=== PATIENT | female | born 1940 | race Caucasian/White ===

== ENCOUNTER 2016-08-23 15:39 | Observation (INO) | payer MEDICARE ==
[2016-08-23 16:18] LABS: Basophils % (A) 0 %; CH 28.6; CHCM 32.7; Eosinophils # (A) 0.1 k/uL (0-0.7); Eosinophils % (A) 2 %; HCT 38.2 % (34.0-46.0); HDW 2.76; HGB 12.2 gm/dL (11.4-16.0); Luc # (Auto) 0.08; Luc % (Auto) 1; Lymphocytes # (A) 1.1 k/uL (1.0-4.8); Lymphocytes % (A) 20 %; MCHC 31.9 g/dL (31.0-37.0); MCV 87.9 fL (80.0-100.0); Monocytes # (A) 0.5 k/uL (0-1.0); Monocytes % (A) 9 %; Neutrophils # (A) 3.8 k/uL (1.3-7.7); Neutrophils % (A) 68 %; RBC 4.35 m/uL (3.80-5.40); RDW 13.5 % (11.5-15.5); WBC 5.6 k/uL (3.8-10.6); WBC (Perox) 5.82
--- NOTE | 2016-08-23 16:28 | ED ---
Chest Pain HPI - General Chief Complaint: Chest Pain Stated Complaint: Chest Pain Time Seen by Provider: 08/23/16 15:54 Source: patient, RN notes reviewed Mode of arrival: wheelchair Limitations: no limitations - History of Present Illness Initial Comments: 75-year-old female presents emergency Department chief complaint chest heaviness , shortness of breath. Patient states that she's had on and off symptoms for the last month but states it's worse today. She states that time she has symptoms worse when she is moving around though she does have symptoms at rest. Patient states that her chest hurts so bad at times that she feels that she cannot breathe. Patient states that she has no history of blood clots. Patient denies any lung conditions. Patient states she has a history of hyperlipidemia but denies hypertension or diabetes. Patient is a nonsmoker no history of smoking. Patient states she is scheduled for a stress test though she states she had canceled that she was sick. Patient denies any coronary stents. Patient denies any nausea, vomiting, diaphoretic episodes. - Related Data Home Medications Medication Instructions Recorded Confirmed Pantoprazole Sodium [Protonix] 40 mg PO DAILY 12/26/13 08/23/16 Aspirin 162 mg PO DAILY 05/04/15 08/23/16 Calcium Carbonate/Vitamin D3 1 tab PO DAILY 05/04/15 08/23/16 [Calcium 600 + Vit D Tablet] Carbidopa/Levodopa [Sinemet 25-100 3 tab PO TID 05/04/15 08/23/16 mg] Carboxymethylcellulose Sodium 1 drop BOTH EYES DAILY 05/04/15 08/23/16 [Refresh Tears] Levothyroxine Sodium [Synthroid] 88 mcg PO DAILY 05/04/15 08/23/16 Sertraline HCl [Sertraline HCl] 50 mg PO DAILY 05/04/15 08/23/16 Vit C/E/Zn/Coppr/Lutein/Zeaxan 1 tab PO DAILY 05/04/15 08/23/16 [Preservision Areds 2 Softgel] Gabapentin [Neurontin] 300 mg PO TID 08/23/16 08/23/16 Pravastatin Sodium [Pravachol] 20 mg PO DAILY 08/23/16 08/23/16 Allergies Allergy/AdvReac Type Severity Reaction Status Date / Time atorvastatin calcium Allergy Mild Nausea Verified 08/23/16 16:54 [From Lipitor] Nitrofuran Analogues Allergy Mild Rash/Hives Verified 08/23/16 16:54 Penicillins Allergy Mild Rash/Hives Verified 08/23/16 16:54 Sulfa (Sulfonamide Allergy Mild Nausea & Verified 08/23/16 16:54 Antibiotics) Vomiting clindamycin Allergy Rash/Hives Verified 08/23/16 16:54 Iodinated Contrast Media - Allergy Dyspnea Verified 08/23/16 16:54 Oral and [Iodinated Contrast Media - IV Dye] Iodine and Iodide Containing Allergy Anaphylaxis Verified 08/23/16 16:54 Produc Review of Systems ROS Statement: Those systems with pertinent positive or pertinent negative responses have been documented in the HPI. ROS Other: All systems not noted in ROS Statement are negative. EKG Findings - EKG Comments: EKG Findings:: EKG performed at 15:57 no sinus rhythm with a rate of 65. MN interval 186 QRS duration 90 QT/QTc 412/420 Past Medical History Past Medical History: Deep Vein Thrombosis (DVT), GERD/Reflux, Pulmonary Embolus (PE), Thyroid Disorder Additional Past Medical History / Comment(s): HYPOTHYROID, PARKINSONS, History of Any Multi-Drug Resistant Organisms: None Reported Past Surgical History: Back Surgery, Cholecystectomy, Hernia Repair, Hysterectomy, Orthopedic Surgery Additional Past Surgical History / Comment(s): EYE LID LIFT, PHIL ARTHOSCOPIC KNEES, L5-S1 LAMINECTOMY, THYROIDECTOMY, SPINAL FUSION 12/2013 Past Anesthesia/Blood Transfusion Reactions: Postoperative Nausea & Vomiting ( PONV) Additional Past Anesthesia/Blood Transfusion Reaction / Comment(s): VERY SLOW TO WAKE UP Past Psychological History: Anxiety, Depression Smoking Status: Never smoker Past Alcohol Use History: None Reported Past Drug Use History: None Reported - Past Family History Mother Family Medical History: Coronary Artery Disease (CAD), CVA/TIA, Hypertension Father Family Medical History: Coronary Artery Disease (CAD), CVA/TIA, Hypertension General Exam Limitations: no limitations General appearance: alert, in no apparent distress Head exam: Present: atraumatic, normocephalic, normal inspection Neck exam: Present: normal inspection, full ROM. Absent: tenderness, meningismus, lymphadenopathy Respiratory exam: Present: normal lung sounds bilaterally. Absent: respiratory distress, wheezes, rales, rhonchi, stridor Cardiovascular Exam: Present: regular rate, normal rhythm, normal heart sounds. Absent: systolic murmur, diastolic murmur, rubs, gallop, clicks GI/Abdominal exam: Present: soft, normal bowel sounds. Absent: distended, tenderness, guarding, rebound, rigid Neurological exam: Present: alert, oriented X3, CN II-XII intact Skin exam: Present: warm, dry, intact, normal color. Absent: rash Course Vital Signs 08/23/16 08/23/16 08/23/16 15:41 17:06 17:48 Temperature 97.7 F Pulse Rate 65 74 Respiratory 18 17 Rate Blood Pressure 187/74 227/79 220/74 O2 Sat by Pulse 98 97 Oximetry 08/23/16 18:38 Temperature Pulse Rate 81 Respiratory 17 Rate Blood Pressure 144/94 O2 Sat by Pulse 97 Oximetry Disposition Clinical Impression: Unstable angina, Hypertension Disposition: ADMITTED IP TO THIS HOSP Condition: Stable
[2016-08-23 16:34] LABS: ALT 31 U/L (9-52); AST 29 U/L (14-36); Alkaline Phosphatase 77 U/L (38-126); Anion Gap 12 mmol/L; Blood Urea Nitrogen 12 mg/dL (7-17); Carbon Dioxide 26 mmol/L (22-30); Chloride 104 mmol/L (98-107); Glucose 97 mg/dL (74-99); Magnesium 2.2 mg/dL (1.6-2.3); Non-African American GFR(MDRD) >60 (>60 ml/min/1.73 sqM); Potassium 4.3 mmol/L (3.5-5.1); Sodium 142 mmol/L (137-145); Total Bilirubin 0.5 mg/dL (0.2-1.3); Total Protein 7.3 g/dL (6.3-8.2)
[2016-08-23 16:36] LABS: Partial Thromboplastin Time 24.3 sec (22.0-30.0); Prothrombin Time 10.3 sec (9.0-12.0)
[2016-08-23 16:38] LABS: Creatine Kinase 91 U/L (30-135)
[2016-08-23 16:51] LABS: Troponin I <0.012 ng/mL (0.000-0.034)
[2016-08-23 16:59] LABS: Creatine Kinase MB 2.7 ng/mL (0.0-2.4)
[2016-08-23] MEDS ORDERED: ASPIRIN 81 MG CHEW PO STA (17:20)
[2016-08-23] MEDS ORDERED: hydrALAZINE HCL 20 MG/ML 1 ML VIAL IVP STA (17:21)
[2016-08-23] MEDS ORDERED: RX INFO: IV CONTRAST WAS GIVEN 1 EACH MISC MISCELLANE PRN (17:21)
[2016-08-23] MEDS ORDERED: FAMOTIDINE 20 MG/2 ML VIAL IV STA (17:22)
[2016-08-23] MEDS ORDERED: methylPREDNISolone SOD SUCCI 125 MG/2 ML VIAL IV STA (17:22)
[2016-08-23] MEDS ORDERED: diphenhydrAMINE 50 MG/ML 1 ML VIAL IVP STA (17:22)
--- NOTE | 2016-08-23 19:06 | CT ---
EXAMINATION TYPE: CT angio chest DATE OF EXAM: 08/23/2016 6:48 PM COMPARISON: 01/17/2015 HISTORY: Patient complains of difficulty breathing. CT DLP: 611 mGycm Automated exposure control for dose reduction was used. CONTRAST: CTA scan of the thorax is performed with IV Contrast, patient injected with 100 mL of Omnipaque 350, pulmonary embolism protocol. There are 3-D postprocess images. FINDINGS: There is some interstitial infiltrate at the lung bases. There is no pleural effusion. There is no ev idence of a pulmonary mass. There is no pericardial effusion. I see no filling defects in the pulmonary arteries. There is no mediastinal adenopathy. There are no hilar masses. Thoracic aorta is intact. There is no evidence of aneurysm or dissection. IMPRESSION: NO EVIDENCE OF PULMONARY EMBOLISM. MILD FIBROTIC CHANGES AT THE LUNG BASES. NO ADVERSE CHANGE COMPARE D TO OLD CT SCAN. THERE IS A 2 CM CYST NOTED IN THE LEFT LOBE OF THE LIVER AND ALSO THE SUPERIOR RIGH T LOBE OF THE LIVER.
[2016-08-23] MEDS ORDERED: NITROGLYCERIN SL TABS 0.4 MG TAB SUBLINGUAL PRN (19:15)
[2016-08-23] MEDS ORDERED: HEPARIN SODIUM,PORCINE 5,000 UNIT/ML 1 ML VIAL IV ONE (19:15)
[2016-08-23] MEDS ORDERED: HEPARIN SODIUM,PORCINE/D5W PMX 25,000 UNIT in DEXTROSE/WATER 1 500ML.BAG IV SCH (19:15)
[2016-08-23] MEDS ORDERED: hydrALAZINE HCL 20 MG/ML 1 ML VIAL IVP PRN (19:17)
[2016-08-23] MEDS ORDERED: SENNOSIDES 8.6 MG TAB PO SCH (21:15)
[2016-08-23] MEDS: POLYETHYLENE GLYCOL 3350 17 GM POWD.PACK PO SCH (22:20)
[2016-08-23] MEDS: GABAPENTIN 300 MG CAP PO SCH (22:33)
[2016-08-23] MEDS: CARBIDOPA-LEVODOPA ER 25-100MG 1 EACH TABLET.ER PO SCH (22:33)
[2016-08-23] MEDS: SENNOSIDES 8.6 MG TAB PO SCH (22:33)
[2016-08-23 23:12] LABS: Creatine Kinase 75 U/L (30-135)
[2016-08-23 23:25] LABS: Troponin I <0.012 ng/mL (0.000-0.034)
[2016-08-24] MEDS ORDERED: HEPARIN SODIUM,PORCINE 5,000 UNIT/ML 1 ML VIAL IV PRN (01:20)
[2016-08-24 04:16] LABS: Creatine Kinase 69 U/L (30-135)
[2016-08-24 04:29] LABS: Creatine Kinase MB 1.7 ng/mL (0.0-2.4); Troponin I <0.012 ng/mL (0.000-0.034)
[2016-08-24 04:32] LABS: Cholesterol 195 mg/dL (<200); HDL Cholesterol 68 mg/dL (40-60); Triglycerides 136 mg/dL (<150)
[2016-08-24] MEDS: LEVOTHYROXINE 88 MCG TAB PO SCH (05:16)
[2016-08-24] MEDS: SERTRALINE 50 MG TAB PO SCH (09:02)
[2016-08-24] MEDS: ASPIRIN 325 MG TAB PO SCH (09:02)
[2016-08-24] MEDS: PANTOPRAZOLE 40 MG TABLET PO SCH (09:02)
[2016-08-24] MEDS: PRAVASTATIN SODIUM 20 MG TAB PO SCH (09:03)
[2016-08-24] MEDS: CARBIDOPA-LEVODOPA ER 25-100MG 1 EACH TABLET.ER PO SCH ×3 (09:05→20:28)
[2016-08-24] MEDS: GABAPENTIN 300 MG CAP PO SCH ×3 (12:45→20:28)
--- NOTE | 2016-08-24 13:41 | P.CRDCN ---
History of Present Illness Consult reason: chest pain, shortness of breath History of present illness: 75-year-old female presenting with 1. Shortness of breath. She is unable to describe this she feels as if she has to take a deep breath in every now and then 2. Vague discomfort in the upper chest 3. Ongoing and palpitations that last for several minutes 4. One episode of presyncope within the last one month she is not sure if it is associated with any other symptoms Past history of hypertension and dyslipidemia, Parkinson's, hypothyroidism Review of systems: No fever chills or rigors, no cough, phlegm or expectoration , no nausea, vomiting or diarrhea, no hematuria, dysuria, no musculoskeletal complaints, no strokes or seizures, no skin lesions. Twelve-lead ECG shows sinus rhythm normal cardiac intervals no ST segment abnormalities Computed tomography scan does not show any evidence of pulmonary embolism On examination her blood pressure was elevated upon admission And the examination is normal no JVD no thyromegaly no carotid bruits Breath sounds are normal no rhonchi no crackles but air entry is definitely reduced bilaterally Heart sounds are normal with a soft systolic murmur abdomen soft nontender Extremities are warm no edema Impression Shortness of breath at rest Elevated blood pressure readings, currently not on any antihypertensive therapy Recurrent palpitations 1 episode of presyncope Normal cardiac enzymes normal ECG no evidence for myocardial injury Dyslipidemia, on statins Suggest Amlodipine 2.5 mg by mouth daily Lipid panel If her blood pressure is normal over the next 24 hours then I would proceed with stress testing on Friday Past Medical History Past Medical History: Chest Pain / Angina, Deep Vein Thrombosis (DVT), GERD/ Reflux, Hyperlipidemia, Pulmonary Embolus (PE), Syncope, Thyroid Disorder Additional Past Medical History / Comment(s): HAD THYROID NODULES(NON MALIGNANT) , PARKINSONS, "NERVE PAIN-TAKES GABAPENTIN", CONSTIPATION-LAST BM 08-23-16.PNE VACCINE IN PAST DATE UNK/OFFICE CLOSED AT TIME OF THIS ADMIT. History of Any Multi-Drug Resistant Organisms: None Reported Past Surgical History: Back Surgery, Cholecystectomy, Hernia Repair, Hysterectomy, Orthopedic Surgery, Tubal Ligation Additional Past Surgical History / Comment(s): EYE LID LIFT, PHIL ARTHOSCOPIC KNEES, L5-S1 LAMINECTOMY, THYROIDECTOMY, SPINAL FUSION 12/2013, EGD, PHIL CATARACTS. Past Anesthesia/Blood Transfusion Reactions: Postoperative Nausea & Vomiting ( PONV) Additional Past Anesthesia/Blood Transfusion Reaction / Comment(s): VERY SLOW TO WAKE UP Past Psychological History: Anxiety, Depression Smoking Status: Never smoker Past Alcohol Use History: None Reported Past Drug Use History: None Reported - Past Family History Mother Family Medical History: Coronary Artery Disease (CAD), CVA/TIA, Hypertension Father Family Medical History: Coronary Artery Disease (CAD), CVA/TIA, Hypertension Medications and Allergies Home Medications Medication Instructions Recorded Confirmed Type Pantoprazole Sodium [Protonix] 40 mg PO DAILY 12/26/13 08/23/16 History Aspirin 162 mg PO DAILY 05/04/15 08/23/16 History Calcium Carbonate/Vitamin D3 1 tab PO DAILY 05/04/15 08/23/16 History [Calcium 600 + Vit D Tablet] Carboxymethylcellulose Sodium 1 drop BOTH EYES DAILY 05/04/15 08/23/16 History [Refresh Tears] Levothyroxine Sodium [Synthroid] 88 mcg PO DAILY 05/04/15 08/23/16 History Sertraline HCl [Sertraline HCl] 50 mg PO DAILY 05/04/15 08/23/16 History Vit C/E/Zn/Coppr/Lutein/Zeaxan 1 tab PO DAILY 05/04/15 08/23/16 History [Preservision Areds 2 Softgel] Carbidopa-Levodopa ER 25-100Mg 3 tab PO TID 08/23/16 08/23/16 History [Sinemet ER 25-100] Gabapentin [Neurontin] 300 mg PO TID 08/23/16 08/23/16 History Polyethylene Glycol 3350 [Miralax] 17 gm PO HS 08/23/16 08/23/16 History Pravastatin Sodium [Pravachol] 20 mg PO DAILY 08/23/16 08/23/16 History Sennosides [Senna Lax] 4 tab PO HS 08/23/16 08/23/16 History Allergies Allergy/AdvReac Type Severity Reaction Status Date / Time atorvastatin calcium Allergy Mild Nausea Verified 08/23/16 16:54 [From Lipitor] Nitrofuran Analogues Allergy Mild Rash/Hives Verified 08/23/16 16:54 Penicillins Allergy Mild Rash/Hives Verified 08/23/16 16:54 Sulfa (Sulfonamide Allergy Mild Nausea & Verified 08/23/16 16:54 Antibiotics) Vomiting clindamycin Allergy Rash/Hives Verified 08/23/16 16:54 Iodinated Contrast Media - Allergy Dyspnea Verified 08/23/16 16:54 Oral and [Iodinated Contrast Media - IV Dye] Iodine and Iodide Containing Allergy Anaphylaxis Verified 08/23/16 16:54 Produc Physical Exam Vitals: Vital Signs Temp Pulse Pulse Resp BP BP Pulse Ox 08/24/16 12:00 69 16 08/24/16 11:15 97.9 F 69 16 131/56 94 L 08/24/16 08:00 69 16 08/24/16 07:45 98.1 F 68 16 176/69 95 08/24/16 05:30 144/70 08/24/16 04:26 97.9 F 63 18 187/71 92 L 08/24/16 00:50 70 18 08/24/16 00:00 82 18 08/23/16 23:22 72 18 158/60 96 08/23/16 21:45 75 18 08/23/16 20:59 98.3 F 78 18 141/62 96 08/23/16 20:32 73 16 183/70 98 Intake and Output 08/23/16 08/24/16 08/24/16 22:59 06:59 14:59 Intake Total 0 Balance 0 Intake: Oral 0 Other: # Voids 2 2 # Bowel Movements 1 Weight 76 kg Results 08/23/16 16:05 08/23/16 16:05 Cardiac Enzymes 08/23/16 08/24/16 Range/Units 22:33 03:22 CK-MB (CK-2) 2.0 1.7 (0.0-2.4) ng/mL Troponin I <0.012 <0.012 (0.000-0.034) ng/mL Coagulation 08/24/16 Range/Units 03:22 APTT 46.2 H (22.0-30.0) sec Lipids 08/24/16 Range/Units 03:22 Triglycerides 136 (<150) mg/dL Cholesterol 195 (<200) mg/dL HDL Cholesterol 68 H (40-60) mg/dL Current Medications Generic Name Dose Route Start Last Admin Trade Name Freq PRN Reason Stop Dose Admin Aspirin 325 mg 08/24/16 09:00 08/24/16 09:02 Aspirin PO 325 mg DAILY AV Administration Carbidopa/Levodopa 3 each 08/23/16 22:00 08/24/16 09:05 Sinemet Er 25-100 PO Not Given TID AV Gabapentin 300 mg 08/23/16 22:00 08/24/16 12:45 Neurontin PO 300 mg TID AV Administration Heparin Sodium (Porcine) 0 unit 08/24/16 01:20 Heparin IV PER PROTOCOL PRN Low PTT Protocol Hydralazine HCl 10 mg 08/23/16 19:17 Apresoline IVP Q4HR PRN Blood Pressure - High Levothyroxine Sodium 88 mcg 08/24/16 06:30 08/24/16 05:16 Synthroid PO Not Given DAILY@0630 [facility] Miscellaneous Information 1 each 08/23/16 17:21 Rx Info: Iv Contrast Was Given MISCELLANE 08/25/16 17:21 DAILY PRN Per Protocol Nitroglycerin 0.4 mg 08/23/16 19:15 Nitrostat SUBLINGUAL Q5M PRN Chest Pain Pantoprazole Sodium 40 mg 08/24/16 09:00 08/24/16 09:02 Protonix PO 40 mg DAILY AV Administration Polyethylene Glycol 17 gm 08/23/16 21:15 08/23/16 22:20 Miralax PO 17 gm HS AV Administration Pravastatin Sodium 20 mg 08/24/16 09:00 08/24/16 09:03 Pravachol PO 20 mg DAILY AV Administration Senna 34.4 mg 08/23/16 22:00 08/23/16 22:33 Senokot PO 34.4 mg HS AV Administration Sertraline HCl 50 mg 08/24/16 09:00 08/24/16 09:02 Zoloft PO 50 mg DAILY AV Administration Intake and Output 08/23/16 08/24/16 08/24/16 22:59 06:59 14:59 Intake Total 0 Balance 0 Intake: Oral 0 Other: # Voids 2 2 # Bowel Movements 1 Weight 76 kg
--- NOTE | 2016-08-24 13:59 | HP ---
DATE OF ADMISSION: This is Sabrina Reynolds [facility] dictating for Dr. Lupe Herrera. PRINCIPAL DIAGNOSIS: Dyspnea. HISTORY OF PRESENT ILLNESS: This is a 75-year-old female patient who presented to the emergency department secondary to shortness of breath and palpitations. The patient states it started approximately 2 days ago but worsened over the last 24 hours. Her shortness of breath is not associated with palpitations or is it associated with exertion. She states it seems to happen more after dinner in the evening hours. She also describes some heaviness and soreness like a pressure to her chest area intermittently which is not associated with any other symptoms. She had no nausea, vomiting, or diaphoresis. She does not have a history of coronary artery disease and does not follow with a automobile brakes bonder regularly; however, she states she has had heart catheterization in the past in [facility], which was negative. She could not describe to me the symptoms she was having prior to having the heart catheterization and she assumed it was chest pain. She has a history of pulmonary embolism about 3 years ago after she had spinal fusion and was treated with Xarelto at that time. Xarelto was stopped secondary to GI bleed and she has been on 2 baby aspirins since that time. She is seen sitting up in bed. She is in no acute distress. She is hemodynamically stable. CAT scan of the chest did not show any evidence of pulmonary embolism and her EKG does not show any ST or T wave abnormalities. Cardiology has been consulted. She remains on a heparin drip at this time. She is currently not having any chest pain. REVIEW OF SYSTEMS: Patient denies seizures, syncope, or loss of consciousness. Denies diplopia or visual disturbances. Denies dysphagia. States shortness of breath with chest discomfort as described above, though denies cough or wheeze. States palpitations as described above. Denies abdominal pain, nausea, vomiting, constipation or diarrhea. States chronic constipation. Denies dysuria or urinary retention. Denies fever or chills. PAST MEDICAL HISTORY: 1. Bilateral PE. 2. Parkinsonism. 3. Hypertension. 4. GERD. 5. Hypothyroidism. PAST SURGICAL HISTORY: Laminectomy, cholecystectomy, hernia repair, hysterectomy, bilateral knee arthroscopy. SOCIAL HISTORY: The patient is . She is a lifelong nonsmoker. Denies EtOH or illicit drug use. ALLERGIES: ATORVASTATIN, NITROFURAN, PENICILLIN, SULFA, CLINDAMYCIN, IODINE. HOME MEDICATIONS: 1. Senna Lax 4 tabs at bedtime. 2. MiraLAX 17 grams at bedtime. 3. Sinemet 25/100 three tabs t.i.d. 4. PreserVision 1 tab daily. 5. Sertraline 50 mg daily. 6. Pravachol 20 mg daily. 7. Protonix 40 mg daily. 8. Synthroid 88 mcg daily. 9. Neurontin 300 mg t.i.d.. 10. Calcium plus vitamin D daily. 11. Artificial tears. 12. Aspirin, 162 mg daily. PHYSICAL EXAMINATION: VITAL SIGNS: Temperature is 98.1, heart rate 68, respiratory rate 16, blood pressure 176/69, pulse oximetry is 95% on room air. GENERAL: The patient is seen sitting up over the side of the bed in no acute distress. HEENT: Head is normocephalic, atraumatic. Pupils equal. Conjunctivae clear. NECK: Supple, no JVD. LUNGS: Clear to auscultation, diminished posterior at the bases. No wheeze, rales, rhonchi appreciated. HEART: Regular rate and rhythm with a 2/6 systolic murmur. ABDOMEN: Soft, nontender, nondistended. Bowel sounds are positive. EXTREMITIES: No lower extremity edema is noted. Pedal pulses are palpable. NEURO: Patient is alert and oriented x3. Speech is clear, interactive and appropriate. No tremor is noted. LABS: Sodium is 142, potassium is 4.3, BUN is 12, creatinine 0.71. WBC count is 5.6, hemoglobin 12.2, platelet count is 206. D-dimer is elevated at 1.38. Serial troponins are negative. DIAGNOSTIC PROCEDURES: CAT scan of the chest with contrast was negative for pulmonary embolism. EKG shows a normal sinus mechanism without any ST or T wave abnormalities. She does have a slightly peaked T waves in the lateral leads. IMPRESSION: 1. Shortness of breath with palpitations and chest discomfort. The patient is on a heparin drip. Cardiology has been consulted. Keep her n.p.o. until she is evaluated by Cardiology. Will order echocardiogram. 2. History of pulmonary embolism. CAT scan of the chest was negative. Continue with aspirin 162 mg daily. 3. Hypothyroidism. Continue with Synthroid 88 mcg daily. 4. Parkinsonism. Continue with Sinemet t.i.d. 5. Hypercholesterolemia. Continue with pravastatin daily. 6. Depression. Continue with sertraline 50 mg daily. 7. Neuropathy. Continue with gabapentin 300 mg t.i.d. 8. Gastrointestinal prophylaxis with Pepcid. 9. Deep venous thrombosis prophylaxis. The patient is on a heparin drip. DISCHARGE PLAN: Will await cardiology's evaluation and further recommendations regarding the possible need for stress testing while the patient is here in the hospital. We will continue to follow her closely.
[2016-08-24] MEDS: amLODIPine 2.5 MG TAB PO SCH (14:33)
[2016-08-24 15:32] VITALS: BMI 28.8
[2016-08-24] MEDS: VIT A,C & E-LUTEIN-MINERALS 1 EACH TAB PO SCH (17:28)
[2016-08-24] MEDS: ARTIFICIAL TEARS-HYPROMELLOSE DROPS 15 ML BTL BOTH EYES SCH (17:28)
[2016-08-24] MEDS: POLYETHYLENE GLYCOL 3350 17 GM POWD.PACK PO SCH (20:28)
[2016-08-24] MEDS: SENNOSIDES 8.6 MG TAB PO SCH (20:28)
[2016-08-25] MEDS: LEVOTHYROXINE 88 MCG TAB PO SCH (06:51)
[2016-08-25 07:32] LABS: Basophils % (A) 0 %; CH 28.4; CHCM 32.6; Eosinophils % (A) 0 %; HCT 35.7 % (34.0-46.0); HDW 2.66; HGB 11.2 gm/dL (11.4-16.0); Luc # (Auto) 0.06; Luc % (Auto) 1; Lymphocytes # (A) 1.2 k/uL (1.0-4.8); Lymphocytes % (A) 19 %; MCH 27.6 pg (25.0-35.0); MCHC 31.5 g/dL (31.0-37.0); MCV 87.6 fL (80.0-100.0); Mean Platelet Volume 8.2; Monocytes # (A) 0.5 k/uL (0-1.0); Monocytes % (A) 8 %; Neutrophils # (A) 4.7 k/uL (1.3-7.7); Neutrophils % (A) 72 %; RBC 4.07 m/uL (3.80-5.40); RDW 13.7 % (11.5-15.5); WBC 6.5 k/uL (3.8-10.6); WBC (Perox) 6.41
[2016-08-25 08:00] LABS: Anion Gap 9 mmol/L; Blood Urea Nitrogen 20 mg/dL (7-17); Calcium 8.9 mg/dL (8.4-10.2); Carbon Dioxide 27 mmol/L (22-30); Chloride 105 mmol/L (98-107); Glucose 89 mg/dL (74-99); Non-African American GFR(MDRD) >60 (>60 ml/min/1.73 sqM); Sodium 141 mmol/L (137-145)
[2016-08-25] MEDS: ARTIFICIAL TEARS-HYPROMELLOSE DROPS 15 ML BTL BOTH EYES SCH (08:01)
[2016-08-25] MEDS: CARBIDOPA-LEVODOPA ER 25-100MG 1 EACH TABLET.ER PO SCH ×3 (08:01→20:38)
[2016-08-25] MEDS: ASPIRIN 325 MG TAB PO SCH (08:01)
[2016-08-25] MEDS: PANTOPRAZOLE 40 MG TABLET PO SCH (08:02)
[2016-08-25] MEDS: CALCIUM CARB-VIT D 500MG-200UN 1 EACH TAB PO SCH (08:02)
[2016-08-25] MEDS: PRAVASTATIN SODIUM 20 MG TAB PO SCH (08:02)
[2016-08-25] MEDS: GABAPENTIN 300 MG CAP PO SCH ×3 (08:03→20:39)
[2016-08-25] MEDS: VIT A,C & E-LUTEIN-MINERALS 1 EACH TAB PO SCH (08:03)
[2016-08-25] MEDS: amLODIPine 2.5 MG TAB PO SCH (08:54)
[2016-08-25] MEDS ORDERED: NA PHOS,M-B/NA PHOS,DI-BA 133 ML ENEMA RECTAL PRN (10:13)
[2016-08-25] MEDS: SERTRALINE 50 MG TAB PO SCH (10:13)
--- NOTE | 2016-08-25 13:30 | PN ---
HISTORY OF PRESENT ILLNESS: This 75-year-old female patient presented to the emergency department secondary to shortness breath and palpitations. She also had some heaviness and pressure to her chest. She had no nausea, vomiting, or diaphoresis. No radiation of her pain. Cardiology did evaluate her and is planning a possible stress test tomorrow. Her only complaint today is some constipation, which she has chronic constipation and takes several stool softeners and laxatives at home. She is requesting enema at that time. This will be ordered for her p.r.n. PHYSICAL EXAMINATION: VITAL SIGNS: Temperature is 97.9, heart rate is 60, respiratory rate is 12, blood pressure 167/78, pulse oximetry is 94% on room air. GENERAL: Patient is seen sitting up in bed in no acute distress. LUNGS: Clear to auscultation. No wheeze, rales, rhonchi appreciated. HEART: Regular rate and rhythm. No murmur. Abdomen is soft, obese, nontender, nondistended. Bowel sounds are positive. EXTREMITIES: No lower extremity was noted. NEURO: Patient is alert and oriented x3. No tremors noted. LABS: Sodium is 141, potassium is 4.0, BUN is 20, creatinine is 0.82. WBC count is 6.5, hemoglobin is 11.2, platelet count is 197. Serial troponins are negative. IMPRESSION: 1. Shortness of breath with palpitations and chest discomfort. Heparin drip has been discontinued. Cardiology is planning possible stress test and awaiting echocardiogram results. 2. History of pulmonary embolism, CT of the chest was negative for pulmonary embolism. Continue with aspirin 162 mg daily. 3. Hypothyroidism. Continue Synthroid 88 mcg daily. 4. Parkinsonism. Continue Sinemet t.i.d. 5. Hypercholesterolemia, continue with pravastatin daily. 6. Depression. Continue with sertraline 50 mg daily. 7. Neuropathy. Continue with Neurontin 300 mg t.i.d. 8. Chronic constipation. Continue with Senokot, MiraLax. Will add Fleet enema. 9. Gastrointestinal prophylaxis with Pepcid. 10. Deep venous thrombosis prophylaxis with subcutaneous heparin.
--- NOTE | 2016-08-25 14:58 | P.PN ---
Subjective Patient is doing well. She is not exquisitely more shortness of breath or chest discomfort or palpitations Review of systems: No fever chills or rigors, no cough, phlegm or expectoration , no nausea, vomiting or diarrhea, no hematuria, dysuria, no musculoskeletal complaints, no strokes or seizures, no skin lesions. 3 sets of cardiac enzymes are normal She's afebrile pulse rate in the 60s blood pressure 138/62 and 122/58 mmHg And neck examination is normal Heart sounds are normal normal S1 normal S2 no murmurs or gallops Breath sounds are normal no rhonchi no crackles Abdomen soft nontender Extremities warm no edema Impression Shortness of breath and chest discomfort Recurrent palpitations 1 episode of presyncope Hypertension Dyslipidemia Normal cardiac enzymes Plan Proceed with dobutamine stress echo tomorrow Further management thereafter Continue amlodipine for hypertension management Objective - Vital Signs Vital signs: Vital Signs Temp 97.9 F 08/25/16 08:00 Pulse 61 08/25/16 12:00 Resp 16 08/25/16 12:00 BP 122/58 08/25/16 14:00 Pulse Ox 96 08/25/16 13:01 Intake & Output 08/24/16 08/25/16 08/25/16 18:59 06:59 18:59 Intake Total 0 300 Balance 0 300 Weight 76 kg Intake: Oral 0 300 Other: # Voids 2 2 - Labs CBC & Chem 7: 08/25/16 06:17 08/25/16 06:17 Labs: Abnormal Lab Results - Last 24 Hours (Table) 08/25/16 08/25/16 Range/Units 06:17 06:17 Hgb 11.2 L (11.4-16.0) gm/dL BUN 20 H (7-17) mg/dL
[2016-08-25] MEDS: POLYETHYLENE GLYCOL 3350 17 GM POWD.PACK PO SCH (20:38)
[2016-08-25] MEDS: SENNOSIDES 8.6 MG TAB PO SCH (20:39)
[2016-08-25] MEDS: HEPARIN SODIUM,PORCINE 5,000 UNIT/ML 1 ML VIAL SQ SCH (20:39)
[2016-08-26] MEDS: LEVOTHYROXINE 88 MCG TAB PO SCH (04:20)
[2016-08-26] MEDS ORDERED: DOBUTamine DRIP for NUC MED 500 MG in DEXTROSE/WATER 1 250ML.BAG IV ONE (05:00)
[2016-08-26 07:36] LABS: Basophils % (A) 0 %; CHCM 31.6; Eosinophils # (A) 0.2 k/uL (0-0.7); Eosinophils % (A) 2 %; HCT 41.2 % (34.0-46.0); Hypochromasia Slight; Luc # (Auto) 0.14; Luc % (Auto) 2; Lymphocytes # (A) 1.2 k/uL (1.0-4.8); Lymphocytes % (A) 17 %; MCH 28.2 pg (25.0-35.0); MCHC 31.6 g/dL (31.0-37.0); MCV 89.2 fL (80.0-100.0); Mean Platelet Volume 7.3; Monocytes # (A) 0.5 k/uL (0-1.0); Monocytes % (A) 7 %; Neutrophils # (A) 5.1 k/uL (1.3-7.7); Neutrophils % (A) 72 %; RBC 4.61 m/uL (3.80-5.40); RDW 13.7 % (11.5-15.5); WBC 7.1 k/uL (3.8-10.6); WBC (Perox) 7.58
[2016-08-26 07:59] VITALS: PULSE 60
[2016-08-26 08:04] LABS: Anion Gap 11 mmol/L; Blood Urea Nitrogen 20 mg/dL (7-17); Calcium 9.4 mg/dL (8.4-10.2); Carbon Dioxide 31 mmol/L (22-30); Chloride 102 mmol/L (98-107); Glucose 101 mg/dL (74-99); Non-African American GFR(MDRD) >60 (>60 ml/min/1.73 sqM); Potassium 4.4 mmol/L (3.5-5.1); Sodium 144 mmol/L (137-145)
[2016-08-26] MEDS ORDERED: METOPROLOL TARTRATE 5 MG/5 ML VIAL IVP ONE (10:56)
[2016-08-26] MEDS: ARTIFICIAL TEARS-HYPROMELLOSE DROPS 15 ML BTL BOTH EYES SCH (11:15)
[2016-08-26] MEDS: HEPARIN SODIUM,PORCINE 5,000 UNIT/ML 1 ML VIAL SQ SCH (11:16)
[2016-08-26] MEDS: ASPIRIN 325 MG TAB PO SCH (11:16)
[2016-08-26] MEDS: amLODIPine 2.5 MG TAB PO SCH (11:16)
[2016-08-26] MEDS: SERTRALINE 50 MG TAB PO SCH (11:16)
[2016-08-26] MEDS: CARBIDOPA-LEVODOPA ER 25-100MG 1 EACH TABLET.ER PO SCH ×2 (11:16→16:28)
[2016-08-26] MEDS: CALCIUM CARB-VIT D 500MG-200UN 1 EACH TAB PO SCH (11:16)
[2016-08-26] MEDS: GABAPENTIN 300 MG CAP PO SCH ×2 (11:16→16:28)
[2016-08-26] MEDS: VIT A,C & E-LUTEIN-MINERALS 1 EACH TAB PO SCH (11:16)
[2016-08-26] MEDS: PRAVASTATIN SODIUM 20 MG TAB PO SCH (11:17)
[2016-08-26] MEDS: PANTOPRAZOLE 40 MG TABLET PO SCH (11:17)
[2016-08-26] MEDS ORDERED: amLODIPine 2.5 MG TAB PO STA (11:47)
[2016-08-26 12:17] VITALS: BP 204/87; RESP 18; TEMP 97.5
--- NOTE | 2016-08-26 13:49 | ECHOS ---
DATE OF SERVICE: AGE: 75Y SEX: F HT: 64" WT: 167lbs. Protocol Albert: Others: X Stage:2 Dur. of Exercise: 5:30 *Heart Rate Blood Pressure *Rest: 59 Rest: 209/75 * *Max. Achieved: 129 Maximum BP: 208/52 85% PMHR: 122 100% PMHR: 143 *METS: INDICATIONS: Chest pain. MEDICATIONS: The patient is a 75-year-old female who is referred for evaluation of cardiac status because of chest pain and shortness of breath. Baseline EKG showed sinus rhythm with ST-T abnormalities in the inferolateral leads, could be related to left ventricular hypertrophy. Blood pressure at rest is 209/75 with a pulse rate of 59. A standard dose of dobutamine was initiated and was titrated to maximum of 20 mcg achieving a maximum heart rate of 129 with a blood pressure of 180/60. EKGs taken during and after the exercise showed more pronounced ST T abnormalities in the inferolateral leads, which are not diagnostic because of baseline changes. The patient developed frequent PVCs, bigeminal pattern and also a couple of episodes of four beats in a row of nonsustained ventricular tachycardia. Patient complained of being dizzy having some chest pain, which appeared to be atypical. Baseline echo images show normal wall motion and thickening. Echo images taken with low-dose and high-dose dobutamine showed augmentation of the wall motion and thickening in all the segments. FINAL IMPRESSION: 1. Nondiagnostic dobutamine stress test because of baseline EKG abnormalities. 2. Negative dobutamine stress echo. 3. The patient developed frequent premature ventricular contractions and 2 episodes of nonsustained ventricular tachycardia consisting of 4 beats. 4. The patient complains atypical chest pain and dizziness, which seemed to resolve after giving IV Lopressor at the end of the procedure.
--- NOTE | 2016-08-28 08:33 | P.DS ---
Providers Date of admission: 08/23/16 19:15 Expected date of discharge: 08/26/16 Attending physician: Lupe Herrera Primary care physician: [facility] Course: This is a 75-year-old female. Her primary care physician is Dr. Olea. She has a past medical history of bilateral pulmonary embolism 3 years ago after spinal fusion and was treated with Xarelto which was so slowly stopped due to GI bleed, parkinsonism, hypertension, gastroesophageal reflux disease, hypothyroidism. Patient presented to [facility] emergency center due to shortness of breath and palpitations that started 2 days prior and gradually worsened over the past 24 hours. Shortness of breath is not associated with palpitations or exertion and seems to happen more often with dinner in the evening hours. She describes the pain as a heaviness and soreness like a pressure to her chest intermittently and not associated with any other symptoms. She denies nausea, vomiting, diaphoresis. No history of coronary artery disease and does not follow with a transfer knitter. She does have history of heart catheterization in the past done in [facility] which was negative. CAT scan of the chest did not show any evidence of pulmonary embolism EKG did not show any ST-T wave abnormalities. Cardiology was consult and patient placed on heparin drip and placed on the observation unit. Patient was seen by cardiology and underwent dobutamine stress test which was negative dobutamine stress echo. Cardiology cleared the patient for discharge. Patient was discharged home in stable condition. Patient's blood pressure was high for which cardiology started her on Norvasc 2.5 mg but unfortunately continued to be high. Patient was discharged home on Norvasc 5 mg daily and to follow-up with in the week. Discharge diagnoses: 1. Shortness of breath with palpitations and chest discomfort. 2. History of pulmonary embolism. 3. Hypothyroidism. 4. Parkinsonism. 5. Hyperlipidemia. 6. Depression recurrent. 7. Peripheral neuropathy. Impression and plan of care have been directed as dictated by the signing physician. Lachelle Santana nurse practitioner acting as scribe for signing physician. Patient Condition at Discharge: Good Plan - Discharge Summary New Discharge Prescriptions: amLODIPine [Norvasc] 5 mg PO DAILY #30 tab Discharge Medication List Pantoprazole Sodium [Protonix] 40 mg PO DAILY 12/26/13 [History] Aspirin 162 mg PO DAILY 05/04/15 [History] Calcium Carbonate/Vitamin D3 [Calcium 600-Vit D3 400 Tablet] 1 tab PO DAILY 08/18 [History] Carboxymethylcellulose Sodium [Refresh Tears] 1 drop BOTH EYES DAILY 05/04/15 [ History] Levothyroxine Sodium [Synthroid] 88 mcg PO DAILY 05/04/15 [History] Sertraline HCl 50 mg PO DAILY 05/04/15 [History] Vit C/E/Zn/Coppr/Lutein/Zeaxan [Preservision Areds 2 Softgel] 1 tab PO DAILY 08/18 [History] Carbidopa-Levodopa ER 25-100Mg [Sinemet CR 25-100 mg] 3 tab PO TID 08/23/16 [ History] Gabapentin [Neurontin] 300 mg PO TID 08/23/16 [History] Polyethylene Glycol 3350 [Miralax] 17 gm PO HS 08/23/16 [History] Pravastatin Sodium [Pravachol] 20 mg PO DAILY 08/23/16 [History] Sennosides [Senna Lax] 4 tab PO HS 08/23/16 [History] amLODIPine [Norvasc] 5 mg PO DAILY #30 tab 08/26/16 [Rx] Follow up Appointment(s)/Referral(s): Juan Olea MD [Primary Care Provider] - 1 Week Patient Instructions/Handouts: Angina (DC) Discharge Disposition: HOME SELF-CARE
== END 2016-08-26 16:20 | disposition home or self-care (01) ==
LOC: EC 15:39 → 3OBS 19:15
PROVIDERS: ADMIT Internal Medicine; ATTEND Internal Medicine
DX: R06.02 Shortness of breath (principal); R00.2 Palpitations; R07.89 Other chest pain; E03.9 Hypothyroidism, unspecified; G20 Parkinson's disease; E78.00 Pure hypercholesterolemia, unspecified; F33.9 Major depressive disorder, recurrent, unspecified; G62.9 Polyneuropathy, unspecified; K59.09 Other constipation; K21.9 Gastro-esophageal reflux disease without esophagitis; I10 Essential (primary) hypertension; E78.5 Hyperlipidemia, unspecified; R55 Syncope and collapse; Z98.1 Arthrodesis status; Z86.711 Personal history of pulmonary embolism; Z86.718 Personal history of other venous thrombosis and embolism; Z79.82 Long term (current) use of aspirin; Z79.899 Other long term (current) drug therapy; Z88.0 Allergy status to penicillin; Z88.2 Allergy status to sulfonamides; Z88.8 Allergy status to other drugs, medicaments and biological substances; Z88.1 Allergy status to other antibiotic agents; Z91.041 Radiographic dye allergy status; Z82.49 Family history of ischemic heart disease and other diseases of the circulatory system
CPT/HCPCS: 36415; 94760; 93005; 93017; 93350; 85379; 83880; 80061; 80053; 80048 ×2; 82550 ×2; 82553 ×2; 83735; 84484 ×2; 85025 ×3; 85610; 85730 ×2; 71275; 99285; 96365; 96375 ×4; 96376; G0378 ×4; J1250; J0360 ×2; J1200; J1644 ×4; J2930; Q9967; 96366; 96372

== ENCOUNTER 2016-08-29 14:51 | Emergency (ER) | payer MEDICARE ==
--- NOTE | 2016-08-29 15:33 | ED ---
Female Urogenital HPI - General Chief complaint: Urogenital Stated complaint: Dysuria Time Seen by Provider: 08/29/16 15:22 Source: patient Mode of arrival: wheelchair Limitations: no limitations - History of Present Illness Initial comments: Patient is a 75-year-old female presenting with dysuria. Patient states she's having difficulty for the past day urinating. She states she has a burning and fullness. Patient is denying dizziness or lightheadedness. Patient states she has a fullness in her head and disconnected from her body. Denies fever, chills , chest, shortness breath, nausea, vomiting, abdominal pain. Patient states she was recently discharged Friday for angina. - Related Data Home Medications Medication Instructions Recorded Confirmed Pantoprazole Sodium [Protonix] 40 mg PO DAILY 12/26/13 08/29/16 Aspirin 162 mg PO DAILY 05/04/15 08/29/16 Calcium Carbonate/Vitamin D3 1 tab PO DAILY 05/04/15 08/29/16 [Calcium 600-Vit D3 400 Tablet] Carboxymethylcellulose Sodium 1 drop BOTH EYES DAILY 05/04/15 08/29/16 [Refresh Tears] Levothyroxine Sodium [Synthroid] 88 mcg PO DAILY 05/04/15 08/29/16 Sertraline HCl 50 mg PO DAILY 05/04/15 08/29/16 Vit C/E/Zn/Coppr/Lutein/Zeaxan 1 cap PO DAILY 05/04/15 08/29/16 [Preservision Areds 2 Softgel] Carbidopa-Levodopa ER 25-100Mg 3 tab PO TID 08/23/16 08/29/16 [Sinemet CR 25-100 mg] Gabapentin [Neurontin] 300 mg PO TID 08/23/16 08/29/16 Polyethylene Glycol 3350 [Miralax] 17 gm PO HS 08/23/16 08/29/16 Pravastatin Sodium [Pravachol] 20 mg PO DAILY 08/23/16 08/29/16 Sennosides [Senna Lax] 34.4 mg PO HS 08/23/16 08/29/16 Previous Rx's Medication Instructions Recorded amLODIPine [Norvasc] 5 mg PO DAILY #30 tab 08/26/16 Allergies Allergy/AdvReac Type Severity Reaction Status Date / Time atorvastatin calcium Allergy Mild Nausea Verified 08/29/16 16:03 [From Lipitor] Nitrofuran Analogues Allergy Mild Rash/Hives Verified 08/29/16 16:03 Penicillins Allergy Mild Rash/Hives Verified 08/29/16 16:03 Sulfa (Sulfonamide Allergy Mild Nausea & Verified 08/29/16 16:03 Antibiotics) Vomiting clindamycin Allergy Rash/Hives Verified 08/29/16 16:03 Iodinated Contrast Media - Allergy Dyspnea Verified 08/29/16 16:03 Oral and [Iodinated Contrast Media - IV Dye] Iodine and Iodide Containing Allergy Anaphylaxis Verified 08/29/16 16:03 Produc Review of Systems ROS Statement: Those systems with pertinent positive or pertinent negative responses have been documented in the HPI. Constitutional: No fever and no chills. HENT: No congestion, no rhinorrhea and no sore throat. Eyes: No discharge and no redness. Respiratory: No cough and no shortness of breath. Cardiovascular: No chest pain and no palpitations. Gastrointestinal: No nausea, no vomiting, no abdominal pain and no diarrhea. Genitourinary: +dysuria and no hematuria. Musculoskeletal: No back pain and no arthralgias. Skin: No pallor and no rash. Neurological: No dizziness and No headaches. ROS Other: All systems not noted in ROS Statement are negative. Past Medical History Past Medical History: Chest Pain / Angina, Deep Vein Thrombosis (DVT), GERD/ Reflux, Hyperlipidemia, Pulmonary Embolus (PE), Syncope, Thyroid Disorder Additional Past Medical History / Comment(s): HAD THYROID NODULES(NON MALIGNANT) , PARKINSONS, "NERVE PAIN-TAKES GABAPENTIN", CONSTIPATION-LAST BM 08-23-16.PNE VACCINE IN PAST DATE UNK/OFFICE CLOSED AT TIME OF THIS ADMIT. History of Any Multi-Drug Resistant Organisms: None Reported Past Surgical History: Back Surgery, Cholecystectomy, Hernia Repair, Hysterectomy, Orthopedic Surgery, Tubal Ligation Additional Past Surgical History / Comment(s): EYE LID LIFT, PHIL ARTHOSCOPIC KNEES, L5-S1 LAMINECTOMY, THYROIDECTOMY, SPINAL FUSION 12/2013, EGD, PHIL CATARACTS. Past Anesthesia/Blood Transfusion Reactions: Postoperative Nausea & Vomiting ( PONV) Additional Past Anesthesia/Blood Transfusion Reaction / Comment(s): VERY SLOW TO WAKE UP Past Psychological History: Anxiety, Depression Smoking Status: Never smoker Past Alcohol Use History: None Reported Past Drug Use History: None Reported - Past Family History Mother Family Medical History: Coronary Artery Disease (CAD), CVA/TIA, Hypertension Father Family Medical History: Coronary Artery Disease (CAD), CVA/TIA, Hypertension General Exam - General Exam Comments Initial Comments: Constitutional: Patient appears well-developed and well-nourished. No distress. Head: Normocephalic and atraumatic. Eyes: Conjunctivae and EOM are normal. Right eye exhibits no discharge. Left eye exhibits no discharge. No scleral icterus. Neck: Normal range of motion. Neck supple. Cardiovascular: Normal rate and regular rhythm. No murmur heard. Pulmonary/Chest: Effort normal and breath sounds normal. No respiratory distress. No wheezes. Abdominal: Soft. No distension. There is no tenderness. There is no rebound and no guarding. Musculoskeletal: Normal range of motion. No edema or tenderness. Neurological: Patient alert and oriented to person, place, and time. Skin: Skin is warm and dry. Not diaphoretic. Nursing notes and vitals reviewed. Limitations: no limitations Course Vital Signs 08/29/16 15:06 Temperature 97.8 F Pulse Rate 70 Respiratory 20 Rate Blood Pressure 108/51 O2 Sat by Pulse 99 Oximetry - Reevaluation(s) Reevaluation #1: 08/29/16 16:54 Patient with a bladder scan of 73 and patient was straight cathed. Medical Decision Making - Medical Decision Making Patient's a 75-year-old female past medical history of Parkinson's presenting with urinary hesitancy and dysuria. Cath UA was unremarkable. Patient states she has a strict bowel regimen including MiraLAX and docusate to regulate her bowel. Urine culture was sent. Patient is to follow-up with neurologist, urologist, PCP to see if she could benefit from any Parkinson's-related treatment for urinary hesitancy. Prior to discharge, patient was resting comfortably in bed. Course of stay improved. Denies pain. Discussed physical exam and diagnostic tests with patient. Questions answered and patient is agreeable to discharge with close follow up with Primary Care Physician. Instructed to return to Emergency Department if symptoms worsen. - Lab Data Lab Results 08/29/16 Range/Units 16:12 Urine Color Yellow Urine Appearance Clear (Clear) Urine pH 5.5 (5.0-8.0) Ur Specific [place] 1.010 (1.001-1.035) Urine Protein Negative (Negative) Urine Glucose (UA) Negative (Negative) Urine Ketones Trace H (Negative) Urine Blood Negative (Negative) Urine Nitrate Negative (Negative) Urine Bilirubin Negative (Negative) Urine Urobilinogen <2.0 (<2.0) mg/dL Ur Leukocyte Esterase Negative (Negative) Disposition Clinical Impression: Urinary hesitancy Disposition: HOME SELF-CARE Condition: Good Instructions: Dysuria (ED) Referrals: Juan Olea MD [Primary Care Provider] - 1-2 days Hayley Weeks MD [STAFF PHYSICIAN] - 1-2 days Gael Bravo MD [STAFF PHYSICIAN] - 1-2 days
[2016-08-29 16:28] LABS: Appearance,Urine Clear (Clear); Bilirubin,Urine Negative (Negative); Glucose,Urine (UA) Negative (Negative); Ketones,Urine Trace (Negative); Leukocyte Esterase,Urine Negative (Negative); Nitrite,Urine Negative (Negative); PH, Urine 5.5 (5.0-8.0); Protein,Urine Negative (Negative); UA Billing (MACRO vs. MICRO) CHEM; Urobilinogen,Urine <2.0 mg/dL (<2.0)
[2016-08-29 17:12] VITALS: BP 154/68; PULSE 58; RESP 16; TEMP 97.6
== END 2016-08-29 16:50 | disposition home or self-care (01) ==
LOC: EC 14:51
DX: R39.11 Hesitancy of micturition (principal); G20 Parkinson's disease; K21.9 Gastro-esophageal reflux disease without esophagitis; E07.9 Disorder of thyroid, unspecified; F41.9 Anxiety disorder, unspecified; F32.9 Major depressive disorder, single episode, unspecified; E78.5 Hyperlipidemia, unspecified; Z79.82 Long term (current) use of aspirin; Z79.899 Other long term (current) drug therapy; Z88.0 Allergy status to penicillin; Z88.2 Allergy status to sulfonamides; Z91.041 Radiographic dye allergy status; Z88.1 Allergy status to other antibiotic agents; Z86.718 Personal history of other venous thrombosis and embolism; Z86.711 Personal history of pulmonary embolism
CPT/HCPCS: 51798; 81003; 87086; 99283

== ENCOUNTER 2016-09-04 15:12 | Emergency (ER) | payer MEDICARE ==
[2016-09-04 15:33] VITALS: TEMP 98.1
--- NOTE | 2016-09-04 18:06 | ED ---
General Adult HPI - General Chief complaint: Urogenital Stated complaint: Woman Time Seen by Provider: 09/04/16 17:43 Source: patient, RN notes reviewed, old records reviewed Mode of arrival: wheelchair Limitations: no limitations - History of Present Illness Initial comments: Patient 75-year-old female who presents emergency room today with a chief complaint of urinary retention on and off. She does admit that she was seen here in the emergency room approximately a week ago for same complaint. States she had straight cath performed at that time. States that today she's having difficult time urinating SMALL amounts. States that when she got back here in the emergency room she was able to go to the bathroom and had a good amount. Patient states that she's not had any discomfort but does admit some slight burning sensation. She denies any other complaints or symptoms. She does admit that is something may be due to her Parkinson's causing the symptoms. She states she has an appointment with her urologist in 2 weeks. Patient denies any recent fever, chills, shortness of breath, chest pain, back pain, abdominal pain, nausea or vomiting, numbness or tingling, hematuria, constipation or diarrhea, headaches or visual changes, or any other complaints. - Related Data Home Medications Medication Instructions Recorded Confirmed Pantoprazole Sodium [Protonix] 40 mg PO DAILY 12/26/13 09/04/16 Aspirin 162 mg PO DAILY 05/04/15 09/04/16 Calcium Carbonate/Vitamin D3 1 tab PO DAILY 05/04/15 09/04/16 [Calcium 600-Vit D3 400 Tablet] Carboxymethylcellulose Sodium 1 drop BOTH EYES DAILY 05/04/15 09/04/16 [Refresh Tears] Levothyroxine Sodium [Synthroid] 88 mcg PO DAILY 05/04/15 09/04/16 Sertraline HCl 50 mg PO DAILY 05/04/15 09/04/16 Vit C/E/Zn/Coppr/Lutein/Zeaxan 1 cap PO DAILY 05/04/15 09/04/16 [Preservision Areds 2 Softgel] Carbidopa-Levodopa ER 25-100Mg 3 tab PO TID 08/23/16 09/04/16 [Sinemet CR 25-100 mg] Gabapentin [Neurontin] 300 mg PO TID 08/23/16 09/04/16 Polyethylene Glycol 3350 [Miralax] 17 gm PO HS 08/23/16 09/04/16 Pravastatin Sodium [Pravachol] 20 mg PO DAILY 08/23/16 09/04/16 Sennosides [Senna Lax] 34.4 mg PO HS 08/23/16 09/04/16 Previous Rx's Medication Instructions Recorded amLODIPine [Norvasc] 5 mg PO DAILY #30 tab 08/26/16 Allergies Allergy/AdvReac Type Severity Reaction Status Date / Time atorvastatin calcium Allergy Mild Nausea Verified 09/04/16 17:43 [From Lipitor] Nitrofuran Analogues Allergy Mild Rash/Hives Verified 09/04/16 17:43 Penicillins Allergy Mild Rash/Hives Verified 09/04/16 17:43 Sulfa (Sulfonamide Allergy Mild Nausea & Verified 09/04/16 17:43 Antibiotics) Vomiting clindamycin Allergy Rash/Hives Verified 09/04/16 17:43 Iodinated Contrast Media - Allergy Dyspnea Verified 09/04/16 17:43 Oral and [Iodinated Contrast Media - IV Dye] Iodine and Iodide Containing Allergy Anaphylaxis Verified 09/04/16 17:43 Produc Review of Systems ROS Statement: Those systems with pertinent positive or pertinent negative responses have been documented in the HPI. ROS Other: All systems not noted in ROS Statement are negative. Past Medical History Past Medical History: Chest Pain / Angina, Deep Vein Thrombosis (DVT), GERD/ Reflux, Hyperlipidemia, Pulmonary Embolus (PE), Syncope, Thyroid Disorder Additional Past Medical History / Comment(s): HAD THYROID NODULES(NON MALIGNANT) , PARKINSONS, "NERVE PAIN-TAKES GABAPENTIN", CONSTIPATION-LAST BM 08-23-16.PNE VACCINE IN PAST DATE UNK/OFFICE CLOSED AT TIME OF THIS ADMIT. History of Any Multi-Drug Resistant Organisms: None Reported Past Surgical History: Back Surgery, Cholecystectomy, Hernia Repair, Hysterectomy, Orthopedic Surgery, Tubal Ligation Additional Past Surgical History / Comment(s): EYE LID LIFT, PHIL ARTHOSCOPIC KNEES, L5-S1 LAMINECTOMY, THYROIDECTOMY, SPINAL FUSION 12/2013, EGD, PHIL CATARACTS. Past Anesthesia/Blood Transfusion Reactions: Postoperative Nausea & Vomiting ( PONV) Additional Past Anesthesia/Blood Transfusion Reaction / Comment(s): VERY SLOW TO WAKE UP Past Psychological History: Anxiety, Depression Smoking Status: Never smoker Past Alcohol Use History: None Reported Past Drug Use History: None Reported - Past Family History Mother Family Medical History: Coronary Artery Disease (CAD), CVA/TIA, Hypertension Father Family Medical History: Coronary Artery Disease (CAD), CVA/TIA, Hypertension General Exam - General Exam Comments Initial Comments: General: The patient is awake and alert, in no distress, and does not appear acutely ill. Eye: Pupils are equal, round and reactive to light, extra-ocular movements are intact. No nystagmus. There is normal conjunctiva bilaterally. No signs of icterus. Ears, nose, mouth and throat: There are moist mucous membranes and no oral lesions. Neck: The neck is supple, there is no tenderness or JVD. Cardiovascular: There is a regular rate and rhythm. No murmur, rub or gallop is appreciated. Respiratory: Lungs are clear to auscultation, respirations are non-labored, breath sounds are equal. No wheezes, stridor, rales, or rhonchi. Gastrointestinal: Soft, non-distended, non-tender abdomen without masses or organomegaly noted. There is no rebound or guarding present. No CVA tenderness. Bowel sounds are unremarkable. Musculoskeletal: Normal ROM, no tenderness. Strength 5/5. Sensation intact. Pulses equal bilaterally 2+. Neurological: A&O x 3. CN II-XII intact, There are no obvious motor or sensory deficits. Coordination appears grossly intact. Speech is normal. Skin: Skin is warm and dry and no rashes or lesions are noted. Psychiatric: Cooperative, appropriate mood & affect, normal judgment. Limitations: no limitations Course Vital Signs 09/04/16 15:31 Temperature 98.1 F Pulse Rate 66 Respiratory 20 Rate Blood Pressure 120/66 O2 Sat by Pulse 98 Oximetry Medical Decision Making - Medical Decision Making Patient reexamined at this time shows no signs of distress. Patient's urinalysis is unremarkable. Cultures pending. Patient's able to void here in the emergency room. No retention at this time. Options of a Rodríguez catheter were discussed in detail. She is advised follow-up the family doctor or neurologist. Advised return to emergency room if there is any retention. Patient states understanding. - Lab Data Lab Results 09/04/16 Range/Units 18:00 Urine Color Yellow Urine Appearance Clear (Clear) Urine pH 5.5 (5.0-8.0) Ur Specific [place] 1.010 (1.001-1.035) Urine Protein Negative (Negative) Urine Glucose (UA) Negative (Negative) Urine Ketones Negative (Negative) Urine Blood Negative (Negative) Urine Nitrate Negative (Negative) Urine Bilirubin Negative (Negative) Urine Urobilinogen <2.0 (<2.0) mg/dL Ur Leukocyte Esterase Negative (Negative) Disposition Clinical Impression: Dysuria Disposition: HOME SELF-CARE Condition: Good Instructions: Dysuria (ED) Additional Instructions: Please use medication as discussed. Please follow-up with family doctor/ urologist in the next 2 days of symptoms have not improved. Please return to emergency room if the symptoms increase or worsen or for any other concerns. Referrals: Juan Olea MD [Primary Care Provider] - 1-2 days Gael Bravo MD [STAFF PHYSICIAN] - 1-2 days Time of Disposition: 19:19
[2016-09-04 18:17] LABS: Appearance,Urine Clear (Clear); Bilirubin,Urine Negative (Negative); Glucose,Urine (UA) Negative (Negative); Ketones,Urine Negative (Negative); Leukocyte Esterase,Urine Negative (Negative); Nitrite,Urine Negative (Negative); PH, Urine 5.5 (5.0-8.0); Protein,Urine Negative (Negative); UA Billing (MACRO vs. MICRO) CHEM; Urobilinogen,Urine <2.0 mg/dL (<2.0)
[2016-09-04 19:40] VITALS: BP 165/69; PULSE 65; RESP 18
== END 2016-09-04 19:38 | disposition home or self-care (01) ==
LOC: EC 15:12
DX: R30.0 Dysuria (principal); R33.9 Retention of urine, unspecified; K21.9 Gastro-esophageal reflux disease without esophagitis; E07.9 Disorder of thyroid, unspecified; E78.5 Hyperlipidemia, unspecified; M79.2 Neuralgia and neuritis, unspecified; K59.00 Constipation, unspecified; F32.9 Major depressive disorder, single episode, unspecified; F41.9 Anxiety disorder, unspecified; H26.9 Unspecified cataract; G20 Parkinson's disease; Z86.718 Personal history of other venous thrombosis and embolism; Z86.711 Personal history of pulmonary embolism; Z79.899 Other long term (current) drug therapy; Z79.82 Long term (current) use of aspirin; Z88.1 Allergy status to other antibiotic agents; Z91.041 Radiographic dye allergy status; Z88.0 Allergy status to penicillin; Z88.2 Allergy status to sulfonamides; Z88.8 Allergy status to other drugs, medicaments and biological substances; Z91.048 Other nonmedicinal substance allergy status
CPT/HCPCS: 51798; 81003; 87086; 99284

== ENCOUNTER → 2016-09-05 | Outpatient (CLI) | payer MEDICARE ==
--- NOTE | 2016-09-05 14:51 | BD ---
EXAMINATION TYPE: MG DEXA axial skeleton. DATE OF EXAM: 09/05/2016 2:17 PM COMPARISON: NONE CLINICAL HISTORY: 75-year-old female postmenopausal screening, osteoporosis Height: 64 Weight: 165 FRAX RISK QUESTIONS: Alcohol (3 or more units per day): NO Family History (Parent hip fracture): NO Glucocorticoids (More than 3mos): NO (Ex: prednisone, prednisolone, methylprednisolone, dexamethasone, and hydrocortisone). History of Fracture in Adulthood: NO Secondary Osteoporosis: 1. Type 1 Diabetes: NO 2. Hyperthyroidism: NO 3. Menopause before 45: NO 4. Malnutrition: NO 5. Chronic liver disease: NO Rheumatoid Arthritis: NO Current Tobacco Use: NO RISK FACTORS HISTORY OF: Hip Fracture (Right/Left): NO Spine Fracture: NO History of Wrist Fracture: NO Surgery to Spine/Hip(right/left)/Wrist (right/left): SPINE- LSPINE FUSION When: 3 YEARS AGO Family History of Osteoporosis: NO Diet low in dairy products/other sources of calcium: NO Postmenopausal woman: AGE 53 Lost more than 2 inches in height since high school: YES Frequent falls: NO Adrenal Insufficiency: NO MEDICATIONS: Thyroid Medications: THYROID How Lon YEARS Additional Medications: CARVADOPA, ACID REFLUX MED Additional History: PT HAS PARKINSONS EXAM MEASUREMENTS: Bone mineral densitometry was performed using the [employer] System. Bone mineral density about the R hip (g/cm2): 0.763 Bone mineral density about the L hip (g/cm2): 0.801 T Score values are as follows: -----R Neck: -2.0 -----L Neck: -1.7 -----R Intertrochanter: -2.2 -----L Intertrochanter: -2.2 Bone mineral density BASELINE IMPRESSION: Osteopenia as indicated by T score values in both hips. Lumbar spine bone density measurements were n ot taken as the patient has a lumbar fusion. There is slightly increased risk for fracture and therapy can be considered. Rescreen in 2-5 years. NOTE: T-SCORE=SD OF THE YOUNG ADULT MEAN.
--- NOTE | 2016-09-06 13:04 | MM ---
Reason for exam: screening (asymptomatic). Last mammogram was performed 1 year and 11 months ago. History: Patient is postmenopausal. Physical Findings: A clinical breast exam by your physician is recommended on an annual basis and results should be correlated with mammographic findings. MG 3D Screening Mammo W/Cad Bilateral CC and MLO view(s) were taken. Prior study comparison: September 26, 2014, bilateral MG screening mammo w CAD. July 12, 2013, bilateral digital screening mammo w/CAD. There are scattered fibroglandular densities. Finding: There are typically benign vascular, round calcifications in both breasts. There is a chronic nodularity in the right breast. There is no discrete abnormality. ASSESSMENT: Benign, BI-RAD 2 RECOMMENDATION: Routine screening mammogram of both breasts in 1 year.
== END | disposition home or self-care (01) ==
LOC: RADMAMWWP 13:21
PROVIDERS: ATTEND Internal Medicine Geriatric Medicine
DX: Z12.31 Encounter for screening mammogram for malignant neoplasm of breast (principal); M85.852 Other specified disorders of bone density and structure, left thigh; M85.851 Other specified disorders of bone density and structure, right thigh; Z98.1 Arthrodesis status
CPT/HCPCS: 77080; 77063; G0202

== ENCOUNTER 2017-04-16 23:42 | Inpatient (IN) | payer MEDICARE ==
--- NOTE | 2017-04-17 00:08 | ED ---
General Adult HPI - General Source: EMS, RN notes reviewed Mode of arrival: EMS Limitations: language barrier <Reinier Elizondo - Last Filed: 04/17/17 00:06> <Victor M South - Last Filed: 04/17/17 04:08> - General Chief complaint: Shortness of Breath Stated complaint: ERIC Time Seen by Provider: 04/16/17 23:45 - History of Present Illness Initial comments: This is a 76-year-old female who presents emergency department stating that she feels as though she has to take a deep breath to get her breath. Patient states it's been a symptom she has had intermittently for many months and has been worked up for in the past. Patient states she was worked up for in August for rate timeframe at which time she had a stress test admitting was negative. Patient states she has had a history of a PE many years ago but it was from back surgery. Patient states she's not on thinners currently. Patient states currently she is not short of breath she states it comes and goes like this that usually at night when it occurs. Patient states she does have a history of some anxiety but she doesn't believe this to be anxiety because she truly feels as though she can't get her breath. Patient denies any chest pain patient denies any palpitations. Patient denies any recent fever chills or cough. Patient denies any leg edema. Patient denies any calf pain. Patient denies any abdominal pain patient denies nausea vomiting or diarrhea. Patient denies any lightheadedness patient states she has a mild headache. (Reinier Elizondo) - Related Data Home Medications Medication Instructions Recorded Confirmed Pantoprazole Sodium [Protonix] 40 mg PO DAILY 12/26/13 09/04/16 Aspirin 162 mg PO DAILY 05/04/15 09/04/16 Calcium Carbonate/Vitamin D3 1 tab PO DAILY 05/04/15 09/04/16 [Calcium 600-Vit D3 400 Tablet] Carboxymethylcellulose Sodium 1 drop BOTH EYES DAILY 05/04/15 09/04/16 [Refresh Tears] Levothyroxine Sodium [Synthroid] 88 mcg PO DAILY 05/04/15 09/04/16 Sertraline HCl 50 mg PO DAILY 05/04/15 09/04/16 Vit C/E/Zn/Coppr/Lutein/Zeaxan 1 cap PO DAILY 05/04/15 09/04/16 [Preservision Areds 2 Softgel] Carbidopa-Levodopa ER 25-100Mg 3 tab PO TID 08/23/16 09/04/16 [Sinemet CR 25-100 mg] Gabapentin [Neurontin] 300 mg PO TID 08/23/16 09/04/16 Polyethylene Glycol 3350 [Miralax] 17 gm PO HS 08/23/16 09/04/16 Pravastatin Sodium [Pravachol] 20 mg PO DAILY 08/23/16 09/04/16 Sennosides [Senna Lax] 34.4 mg PO HS 08/23/16 09/04/16 Previous Rx's Medication Instructions Recorded amLODIPine [Norvasc] 5 mg PO DAILY #30 tab 08/26/16 Allergies Allergy/AdvReac Type Severity Reaction Status Date / Time atorvastatin calcium Allergy Mild Nausea Verified 04/16/17 23:59 [From Lipitor] Nitrofuran Analogues Allergy Mild Rash/Hives Verified 04/16/17 23:59 Penicillins Allergy Mild Rash/Hives Verified 04/16/17 23:59 Sulfa (Sulfonamide Allergy Mild Nausea & Verified 04/16/17 23:59 Antibiotics) Vomiting clindamycin Allergy Rash/Hives Verified 04/16/17 23:59 Iodinated Contrast- Oral and Allergy Dyspnea Verified 04/16/17 23:59 IV Dye [Iodinated Contrast Media - IV Dye] Iodine and Iodide Containing Allergy Anaphylaxis Verified 04/16/17 23:59 Produc Review of Systems ROS Other: All systems not noted in ROS Statement are negative. <Reinier Elizondo - Last Filed: 04/17/17 00:06> ROS Other: All systems not noted in ROS Statement are negative. <Victor M South - Last Filed: 04/17/17 04:08> ROS Statement: Those systems with pertinent positive or pertinent negative responses have been documented in the HPI. Past Medical History Past Medical History: Chest Pain / Angina, Deep Vein Thrombosis (DVT), GERD/ Reflux, Hyperlipidemia, Hypertension, Pulmonary Embolus (PE), Syncope, Thyroid Disorder Additional Past Medical History / Comment(s): HAD THYROID NODULES(NON MALIGNANT) , PARKINSONS, "NERVE PAIN-TAKES GABAPENTIN", CONSTIPATION-LAST BM 08-23-16.PNE VACCINE IN PAST DATE UNK/OFFICE CLOSED AT TIME OF THIS ADMIT. History of Any Multi-Drug Resistant Organisms: None Reported Past Surgical History: Back Surgery, Cholecystectomy, Hernia Repair, Hysterectomy, Orthopedic Surgery, Tubal Ligation Additional Past Surgical History / Comment(s): EYE LID LIFT, PHIL ARTHOSCOPIC KNEES, L5-S1 LAMINECTOMY, THYROIDECTOMY, SPINAL FUSION 12/2013, EGD, PHIL CATARACTS. Past Anesthesia/Blood Transfusion Reactions: Postoperative Nausea & Vomiting ( PONV) Additional Past Anesthesia/Blood Transfusion Reaction / Comment(s): VERY SLOW TO WAKE UP Past Psychological History: Anxiety, Depression Smoking Status: Never smoker Past Alcohol Use History: None Reported Past Drug Use History: None Reported - Past Family History Mother Family Medical History: Coronary Artery Disease (CAD), CVA/TIA, Hypertension Father Family Medical History: Coronary Artery Disease (CAD), CVA/TIA, Hypertension <Reinier Elizondo - Last Filed: 04/17/17 00:06> General Exam Limitations: language barrier <Reinier Elizondo - Last Filed: 04/17/17 00:06> <Victor M South - Last Filed: 04/17/17 04:08> - General Exam Comments Initial Comments: GENERAL: Patient is well-developed and well-nourished. Patient is nontoxic and well- hydrated and is in no acute distress. ENT: Neck is soft and supple. No significant lymphadenopathy is noted. Oropharynx is clear. Moist mucous membranes. Neck has full range of motion without eliciting any pain. EYES: The sclera were anicteric and conjunctiva were pink and moist. Extraocular movements were intact and pupils were equal round and reactive to light. Eyelids were unremarkable. PULMONARY: Unlabored respirations. Good breath sounds bilaterally. No audible rales rhonchi or wheezing was noted. CARDIOVASCULAR: There is a regular rate and rhythm without any murmurs gallops or rubs. ABDOMEN: Soft and nontender with normal bowel sounds. No palpable organomegaly was noted. There is no palpable pulsatile mass. SKIN: Skin is clear with no lesions or rashes and otherwise unremarkable. NEUROLOGIC: Patient is alert and oriented x3. Cranial nerves II through XII are grossly intact. Motor and sensory are also intact. Normal speech, volume and content. Symmetrical smile. MUSCULOSKELETAL: Normal extremities with adequate strength and full range of motion. No lower extremity swelling or edema. No calf tenderness. LYMPHATICS: No significant lymphadenopathy is noted PSYCHIATRIC: Normal psychiatric evaluation. (Reinier Elizondo) Medical Decision Making <Reinier Elizondo - Last Filed: 04/17/17 00:06> - Lab Data Result diagrams: 04/16/17 23:45 04/16/17 23:45 <Victor M South - Last Filed: 04/17/17 04:08> - Medical Decision Making Patient's EKG shows normal sinus rhythm at 65 bpm MA interval is 200 QRSs 88 QT interval is 416 QTC is 432. Patient's EKG shows no ST segment elevation or depression or T wave abnormalities are noted (Reinier Elizondo) Receive this patient as sign out pending the computed tomography scan which revealed presence of pulmonary embolus. Patient started on heparin and will be admitted for further (Victor M South) - Lab Data Lab Results 04/16/17 04/16/17 04/16/17 Range/Units 23:45 23:45 23:45 WBC 5.8 (3.8-10.6) k/uL RBC 4.34 (3.80-5.40) m/uL Hgb 12.2 (11.4-16.0) gm/dL Hct 37.0 (34.0-46.0) % MCV 85.3 (80.0-100.0) fL MCH 28.2 (25.0-35.0) pg MCHC 33.1 (31.0-37.0) g/dL RDW 13.6 (11.5-15.5) % Plt Count 197 (150-450) k/uL Neutrophils % 70 % Lymphocytes % 17 % Monocytes % 8 % Eosinophils % 2 % Basophils % 0 % Neutrophils # 4.1 (1.3-7.7) k/uL Lymphocytes # 1.0 (1.0-4.8) k/uL Monocytes # 0.5 (0-1.0) k/uL Eosinophils # 0.1 (0-0.7) k/uL Basophils # 0.0 (0-0.2) k/uL PT (9.0-12.0) sec INR (<1.2) APTT (22.0-30.0) sec D-Dimer (<0.60) mg/L FEU Sodium 136 L (137-145) mmol/L Potassium 3.9 (3.5-5.1) mmol/L Chloride 102 (98-107) mmol/L Carbon Dioxide 26 (22-30) mmol/L Anion Gap 8 mmol/L BUN 11 (7-17) mg/dL Creatinine 0.70 (0.52-1.04) mg/dL Est GFR (MDRD) Af Amer >60 (>60 ml/min/1.73 sqM) Est GFR (MDRD) Non-Af >60 (>60 ml/min/1.73 sqM) Glucose 97 (74-99) mg/dL Calcium 8.9 (8.4-10.2) mg/dL Magnesium 2.0 (1.6-2.3) mg/dL Total Bilirubin 0.5 (0.2-1.3) mg/dL AST 21 (14-36) U/L ALT 24 (9-52) U/L Alkaline Phosphatase 85 (38-126) U/L Total Creatine Kinase 63 (30-135) U/L CK-MB (CK-2) 2.2 (0.0-2.4) ng/mL CK-MB (CK-2) Rel Index 3.5 Troponin I <0.012 (0.000-0.034) ng/mL NT-Pro-B Natriuret Pep pg/mL Total Protein 6.7 (6.3-8.2) g/dL Albumin 3.9 (3.5-5.0) g/dL 04/16/17 04/16/17 Range/Units 23:45 23:45 WBC (3.8-10.6) k/uL RBC (3.80-5.40) m/uL Hgb (11.4-16.0) gm/dL Hct (34.0-46.0) % MCV (80.0-100.0) fL MCH (25.0-35.0) pg MCHC (31.0-37.0) g/dL RDW (11.5-15.5) % Plt Count (150-450) k/uL Neutrophils % % Lymphocytes % % Monocytes % % Eosinophils % % Basophils % % Neutrophils # (1.3-7.7) k/uL Lymphocytes # (1.0-4.8) k/uL Monocytes # (0-1.0) k/uL Eosinophils # (0-0.7) k/uL Basophils # (0-0.2) k/uL PT 10.4 (9.0-12.0) sec INR 1.0 (<1.2) APTT 24.4 (22.0-30.0) sec D-Dimer 1.37 H (<0.60) mg/L FEU Sodium (137-145) mmol/L Potassium (3.5-5.1) mmol/L Chloride (98-107) mmol/L Carbon Dioxide (22-30) mmol/L Anion Gap mmol/L BUN (7-17) mg/dL Creatinine (0.52-1.04) mg/dL Est GFR (MDRD) Af Amer (>60 ml/min/1.73 sqM) Est GFR (MDRD) Non-Af (>60 ml/min/1.73 sqM) Glucose (74-99) mg/dL Calcium (8.4-10.2) mg/dL Magnesium (1.6-2.3) mg/dL Total Bilirubin (0.2-1.3) mg/dL AST (14-36) U/L ALT (9-52) U/L Alkaline Phosphatase (38-126) U/L Total Creatine Kinase (30-135) U/L CK-MB (CK-2) (0.0-2.4) ng/mL CK-MB (CK-2) Rel Index Troponin I (0.000-0.034) ng/mL NT-Pro-B Natriuret Pep 161 pg/mL Total Protein (6.3-8.2) g/dL Albumin (3.5-5.0) g/dL Disposition <Reinier Elizondo - Last Filed: 04/17/17 00:06> <Victor M South - Last Filed: 04/17/17 04:08> Clinical Impression: Pulmonary embolism Disposition: ADMITTED IP TO THIS HOSP Condition: Fair
[2017-04-17 00:21] LABS: Basophils % (A) 0 %; CH 27.9; CHCM 32.8; Eosinophils # (A) 0.1 k/uL (0-0.7); Eosinophils % (A) 2 %; HDW 2.58; HGB 12.2 gm/dL (11.4-16.0); Luc # (Auto) 0.14; Luc % (Auto) 2; Lymphocytes % (A) 17 %; MCH 28.2 pg (25.0-35.0); MCHC 33.1 g/dL (31.0-37.0); MCV 85.3 fL (80.0-100.0); Mean Platelet Volume 7.9; Monocytes # (A) 0.5 k/uL (0-1.0); Monocytes % (A) 8 %; Neutrophils # (A) 4.1 k/uL (1.3-7.7); Neutrophils % (A) 70 %; RBC 4.34 m/uL (3.80-5.40); RDW 13.6 % (11.5-15.5); WBC 5.8 k/uL (3.8-10.6); WBC (Perox) 5.51
[2017-04-17 00:28] LABS: ALT 24 U/L (9-52); AST 21 U/L (14-36); Alkaline Phosphatase 85 U/L (38-126); Anion Gap 8 mmol/L; Blood Urea Nitrogen 11 mg/dL (7-17); Calcium 8.9 mg/dL (8.4-10.2); Carbon Dioxide 26 mmol/L (22-30); Chloride 102 mmol/L (98-107); Glucose 97 mg/dL (74-99); Non-African American GFR(MDRD) >60 (>60 ml/min/1.73 sqM); Potassium 3.9 mmol/L (3.5-5.1); Sodium 136 mmol/L (137-145); Total Bilirubin 0.5 mg/dL (0.2-1.3); Total Protein 6.7 g/dL (6.3-8.2)
[2017-04-17 00:34] LABS: Partial Thromboplastin Time 24.4 sec (22.0-30.0); Prothrombin Time 10.4 sec (9.0-12.0)
[2017-04-17 00:38] LABS: Creatine Kinase 63 U/L (30-135)
[2017-04-17] MEDS ORDERED: FAMOTIDINE 20 MG/2 ML VIAL IV STA (00:49)
[2017-04-17] MEDS ORDERED: diphenhydrAMINE 50 MG/ML 1 ML VIAL IVP STA (00:49)
[2017-04-17] MEDS ORDERED: RX INFO: IV CONTRAST WAS GIVEN 1 EACH MISC MISCELLANE PRN (00:49)
[2017-04-17] MEDS ORDERED: methylPREDNISolone SOD SUCCI 125 MG/2 ML VIAL IV STA (00:49)
[2017-04-17 00:52] LABS: Creatine Kinase MB 2.2 ng/mL (0.0-2.4); Troponin I <0.012 ng/mL (0.000-0.034)
--- NOTE | 2017-04-17 00:58 | XR ---
EXAM: XR Chest, 2 Views CLINICAL HISTORY: Reason: difficulty breathing TECHNIQUE: Frontal and lateral views of the chest. COMPARISON: 01/17/15 FINDINGS: Lungs: Unremarkable. No consolidation. Pleural space: Unremarkable. No pneumothorax. Heart: Unremarkable. No cardiomegaly. Mediastinum: Unremarkable. Bones/joints: Unremarkable. IMPRESSION: No acute findings or substantial change
--- NOTE | 2017-04-17 02:47 | CT ---
EXAM: CT Angiography Chest With Intravenous Contrast CLINICAL HISTORY: And in Pain TECHNIQUE: Axial computed tomographic angiography images of the chest with intravenous contrast using pulmonary embolism protocol. CTDI is 80.9 mGy and DLP is 231.1 mGy-cm. This CT exam was performed using one or more of the following dose reduction techniques: automated exposure control, adjustment of the mA and/or kV according to patient size, and/or use of iterative reconstruction technique. Coronal and sagittal reconstructions are performed MIP reconstructed images were created and reviewed. COMPARISON: CTA chest from 08/23/2016 FINDINGS: Pulmonary arteries: Tiny non occlusive embolus in the segmental pulmonary artery to the left lower lobe, best seen on series 4 image 67- 72 and series 7 image 19. No evidence of right heart strain or main pulmonary artery enlargement. Aorta: No acute findings. No thoracic aortic aneurysm. Lungs: Bibasilar atelectasis. Mild bronchiectasis in the lower lobes, possibly postinfectious in etiology. Pleural space: Unremarkable. No significant effusion. No pneumothorax. Heart: No pericardial effusion.. Bones/joints: No acute fracture. No dislocation. Soft tissues: Unremarkable. Lymph nodes: Unremarkable. No enlarged lymph nodes. Liver: Simple cyst in the left hepatic lobe is partially visualized. IMPRESSION: Tiny non occlusive embolus in the segmental branch to the left lower lobe. No evidence of main pulmonary enlargement or right heart strain. And Mild bronchiectasis in the lower lobes, possibly postinfectious in etiology. [employer] 04/17/17 02:49 Call Doctor Regarding Pulmonary Embolism, called Dr. Hill on 04/17 02:48 (-04:00)
[2017-04-17] MEDS ORDERED: HEPARIN SODIUM,PORCINE 5,000 UNIT/ML 1 ML VIAL IV PRN (02:49)
[2017-04-17] MEDS ORDERED: HEPARIN SODIUM,PORCINE 10,000 UNIT/ML 1 ML VIAL IV ONE (02:49)
[2017-04-17] MEDS ORDERED: NALOXONE 0.4 MG/ML 1 ML VIAL IV PRN (03:10)
[2017-04-17] MEDS ORDERED: HEPARIN SODIUM,PORCINE 5,000 UNIT/ML 1 ML VIAL IV ONE (03:15)
[2017-04-17] MEDS: SODIUM CHLORIDE 0.9% 1,000 ML IV SCH (03:56)
[2017-04-17] MEDS: HEPARIN SODIUM,PORCINE/D5W PMX 25,000 UNIT in DEXTROSE/WATER 1 500ML.BAG IV SCH ×2 (03:57→22:36)
[2017-04-17] MEDS: GABAPENTIN 300 MG CAP PO SCH ×3 (08:32→22:32)
[2017-04-17] MEDS: CALCIUM CARB-VIT D 500MG-200UN 1 EACH TAB PO SCH (08:32)
[2017-04-17] MEDS: CARBIDOPA-LEVODOPA ER 25-100MG 1 EACH TABLET.ER PO SCH ×3 (08:32→22:35)
[2017-04-17] MEDS: LEVOTHYROXINE 88 MCG TAB PO SCH (08:32)
[2017-04-17] MEDS: amLODIPine 5 MG TAB PO SCH (08:32)
[2017-04-17] MEDS: FAMOTIDINE 20 MG TAB PO SCH ×2 (08:32→21:09)
[2017-04-17] MEDS: SERTRALINE 50 MG TAB PO SCH (08:32)
[2017-04-17] MEDS: PANTOPRAZOLE 40 MG TABLET PO SCH (08:32)
[2017-04-17] MEDS: ARTIFICIAL TEARS-HYPROMELLOSE DROPS 15 ML BTL BOTH EYES SCH (08:32)
[2017-04-17] MEDS: ASPIRIN 81 MG PO SCH (08:32)
[2017-04-17] MEDS: PRAVASTATIN SODIUM 20 MG TAB PO SCH (08:33)
[2017-04-17] MEDS: SENNOSIDES 8.6 MG TAB PO SCH ×2 (11:00→22:05)
--- NOTE | 2017-04-17 11:28 | US ---
EXAMINATION TYPE: US venous doppler duplex LE DATE OF EXAM: 04/17/2017 11:17 AM COMPARISON: 06/24/2014 CLINICAL HISTORY: Pulmonary embolism. Patient currently taking blood thinners SIDE PERFORMED: Bilateral TECHNIQUE: The lower extremity deep venous system is examined utilizing real time linear array sonog john with graded compression, doppler sonography and color-flow sonography. VESSELS IMAGED: External Iliac Vein (EIV) Common Femoral Vein Deep Femoral Vein Greater Saphenous Vein * Femoral Vein Popliteal Vein Small Saphenous Vein * Proximal Calf Veins (* superficial vessels) Right Leg: Appears negative for DVT Left Leg: Appears negative for DVT IMPRESSION: 1. No diagnostic evidence of DVT as visualized.
--- NOTE | 2017-04-17 11:30 | P.CNPUL ---
History of Present Illness Consult date: 04/17/17 Reason for consult: dyspnea, hypoxemia, pulmonary embolism, abnormal CXR/CT Chief complaint: Shortness of breath History of present illness: Consult dated 04/17/2017 This is a very pleasant 76-year-old female with a prior history of pulmonary most him some 3 years ago. At that time she was treated with a factor X a inhibitor for about 3 months. She apparently had a complication to that drug and at that time it was stopped. The patient's clot at that time was related to a previous or recent spinal fusion. Hence it was provoked in 3 months probably was appropriate at that time. More recently she comes in with shortness of breath. The patient was evaluated in the emergency room and was found to have a very small clot in the left pulmonary artery. It was a substance subsegmental branch it was nonocclusive. The patient did not have any central large pulmonary emboli. Anyway the patient did have a CT angiogram. The patient has no active cancer. No recent long car rides boat ride train rides plane rides. No trauma to the lower extremities. The patient cannot take a factor X a inhibitor. I believe it was Xarelto the last time when she was treated. Probably should be on Coumadin this time. She is given have a Doppler the lower extremity. It was in progress we went into the room. She otherwise looks pretty well. Doesn't appear to be particularly sick or ill. Review of Systems A 12 point review of system is positive for primarily shortness of breath. She really denies other complaints of any chest pain chest discomfort cough wheezing phlegm production fever chills nausea vomiting or diarrhea. Past Medical History Past Medical History: Chest Pain / Angina, Deep Vein Thrombosis (DVT), GERD/ Reflux, Hyperlipidemia, Hypertension, Pulmonary Embolus (PE), Syncope, Thyroid Disorder Additional Past Medical History / Comment(s): HAD THYROID NODULES(NON MALIGNANT) , PARKINSONS, "NERVE PAIN-TAKES GABAPENTIN", CONSTIPATION- History of Any Multi-Drug Resistant Organisms: None Reported Past Surgical History: Back Surgery, Cholecystectomy, Hernia Repair, Hysterectomy, Orthopedic Surgery, Tubal Ligation Additional Past Surgical History / Comment(s): EYE LID LIFT, PHIL ARTHOSCOPIC KNEES, L5-S1 LAMINECTOMY, THYROIDECTOMY, SPINAL FUSION 12/2013, EGD, PHIL CATARACTS. Past Anesthesia/Blood Transfusion Reactions: Postoperative Nausea & Vomiting ( PONV) Additional Past Anesthesia/Blood Transfusion Reaction / Comment(s): VERY SLOW TO WAKE UP Past Psychological History: Anxiety, Depression Smoking Status: Never smoker Past Alcohol Use History: None Reported Past Drug Use History: None Reported - Past Family History Mother Family Medical History: Coronary Artery Disease (CAD), CVA/TIA, Hypertension Father Family Medical History: Coronary Artery Disease (CAD), CVA/TIA, Hypertension Medications and Allergies Home Medications Medication Instructions Recorded Confirmed Type Pantoprazole Sodium [Protonix] 40 mg PO Q48H 12/26/13 04/17/17 History Aspirin 162 mg PO DAILY 05/04/15 04/17/17 History Calcium Carbonate/Vitamin D3 1 tab PO DAILY 05/04/15 04/17/17 History [Calcium 600-Vit D3 400 Tablet] Carboxymethylcellulose Sodium 1 drop BOTH EYES DAILY 05/04/15 04/17/17 History [Refresh Tears] Levothyroxine Sodium [Synthroid] 88 mcg PO DAILY 05/04/15 04/17/17 History Sertraline HCl 75 mg PO DAILY 05/04/15 04/17/17 History Vit C/E/Zn/Coppr/Lutein/Zeaxan 1 cap PO DAILY 05/04/15 04/17/17 History [Preservision Areds 2 Softgel] Carbidopa-Levodopa ER 25-100Mg 3 tab PO TID-W/MEALS 08/23/16 04/17/17 History [Sinemet CR 25-100 mg] Gabapentin [Neurontin] 300 mg PO QID 08/23/16 04/17/17 History Polyethylene Glycol 3350 [Miralax] 17 gm PO HS PRN 08/23/16 04/17/17 History Pravastatin Sodium [Pravachol] 20 mg PO DAILY 08/23/16 04/17/17 History Sennosides [Senna Lax] 17.2 - 34.4 mg PO HS 08/23/16 04/17/17 History amLODIPine [Norvasc] 5 mg PO DAILY #30 tab 08/26/16 04/17/17 Rx Ergocalciferol [Vitamin D2 50,000 unit PO Q14D 04/17/17 04/17/17 History (DRISDOL)] Allergies Allergy/AdvReac Type Severity Reaction Status Date / Time atorvastatin calcium Allergy Mild Nausea Verified 04/16/17 23:59 [From Lipitor] Nitrofuran Analogues Allergy Mild Rash/Hives Verified 04/16/17 23:59 Penicillins Allergy Mild Rash/Hives Verified 04/16/17 23:59 Sulfa (Sulfonamide Allergy Mild Nausea & Verified 04/16/17 23:59 Antibiotics) Vomiting clindamycin Allergy Rash/Hives Verified 04/16/17 23:59 Iodinated Contrast- Oral and Allergy Dyspnea Verified 04/16/17 23:59 IV Dye [Iodinated Contrast Media - IV Dye] Iodine and Iodide Containing Allergy Anaphylaxis Verified 04/16/17 23:59 Produc Physical Exam Osteopathic Statement: *. No significant issues noted on an osteopathic structural exam other than those noted in the History and Physical/Consult. Vitals: Vital Signs Temp Pulse Pulse Resp BP BP Pulse Ox 04/17/17 07:00 97.6 F 63 18 154/60 96 04/17/17 05:44 98.7 F 60 18 162/75 98 04/17/17 04:40 66 18 187/78 98 04/17/17 03:40 58 L 18 161/72 97 04/17/17 02:40 62 18 174/68 97 04/17/17 01:46 62 18 183/74 97 04/17/17 00:46 97.4 F L 61 18 162/92 94 L 04/17/17 00:03 64 18 166/74 98 04/16/17 23:43 98 F 63 18 196/76 98 Intake and Output 04/16/17 04/17/17 04/17/17 22:59 06:59 14:59 Intake Total 144.531 Balance 144.531 Intake: Intake, IV Titration 144.531 Amount Heparin Sodium,Porcine/ 144.531 D5w Pmx 25,000 unit In Dextrose/Water 1 500ml. bag @ 18 UNITS/KG/HR 26. 12 mls/hr IV .Q19H9M [facility] Rx#:[id number] Other: Voiding Method Bedside Commode # Voids 1 2 Weight 72.575 kg No acute distress, oriented 3. HEENT examination is grossly unremarkable. Mucous members are moist. No oral lesions. Neck supple. Full range of motion. No adenopathy. Cardiovascular examination reveals regular rhythm rate. S1-S2 normal. No murmur. No S3 or S4. Lungs clear breath sounds equal. No adventitious lung sounds. Abdomen soft bowel sounds are heard. Extremities are intact. No cyanosis clubbing or edema. Skin without rash. Results - Laboratory Findings CBC and BMP: 04/16/17 23:45 04/16/17 23:45 PT/INR, D-dimer PT 10.4 sec (9.0-12.0) 04/16/17 23:45 INR 1.0 (<1.2) 04/16/17 23:45 D-Dimer 1.37 mg/L FEU (<0.60) H 04/16/17 23:45 Abnormal lab findings: Abnormal Labs 04/16/17 04/16/17 04/17/17 23:45 23:45 08:24 APTT 129.1 H* D-Dimer 1.37 H Sodium 136 L - Diagnostic Findings Chest x-ray: image reviewed CT scan - chest: image reviewed (The patients labs x-rays and medications will all be reviewed.) Assessment and Plan (1) Pulmonary embolism Status: Acute (2) Chronic anemia Status: Acute (3) Dyspnea Status: Acute (4) History of Parkinson's disease Status: Acute (5) Hypertension Status: Acute (6) Pulmonary hypertension, moderate to severe Status: Acute Plan: Plan dated 04/17/2017 The patient said doing well. A Doppler of lower extremities was ordered and was being done as we are seeing the patient. It appears that the patient probably cannot tolerate a factor X a inhibitor. The patient probably should be treated acutely with IV heparin. She should be started on Coumadin. She should be treated for at least 6 months and maybe longer. This was an unprovoked clot. This is not like to for clot which was provoked secondary to a spinal fusion surgery. The patient will need follow-up in the office. The patient will need a follow-up computed tomography scan about 8-12 weeks down the line. Additional recommendations suggestions are forthcoming. Time with Patient: Greater than 30
--- NOTE | 2017-04-17 13:19 | P.HPIM ---
History of Present Illness H&P Date: 04/17/17 Chief Complaint: Pulmonary embolism, shortness of breath, chest pain, Parkinson disease, hyp 76-year-old female one of my office patient of known for the last 8 years with past medical history of advanced Parkinson disease chronic lower back pain history of hypertension hypothyroidism and hyperlipidemia who developed previous history of DVT and PE bilaterally post laminectomy and fusion of the spine a few years ago was on anticoagulation specifically Xarelto for total of 1 year had tolerated well till the last few weeks of Xarelto when patient developed to have increased bleeding mostly gastrointestinal along with nosebleed and other. Patient was off anticoagulation for more than 6 month at the time and decided to quit anticoagulation completely after consulting with hematology. Patient has been doing well till the last few days when developed to have worsening dyspnea on shortness of breath without exertion this morning she developed to have much worsening symptom with dyspnea shortness of breath mild chest pain and tightness with mild pleuritic-like symptoms as well ended up coming to the emergency department at [facility]. CTA performed and showed small PE in a smaller branch of the lung not in the main branch. Patient was started on anticoagulation with IV heparin after bolus was done and admitted to the hospital shortly after with the above problem. Review of Systems Constitutional: Reports fatigue, Reports lethargy, Reports poor appetite, Reports weight gain, Denies as per HPI, Denies anorexia, Denies chills, Denies chronic headaches, Denies chronic pain, Denies daytime sleepiness, Denies fever , Denies malaise, Denies night sweats, Denies sweats, Denies weakness, Denies weight loss Eyes: bilateral as per HPI Ears: bilateral: decreased hearing Ears, nose, mouth and throat: Reports ant. neck pain, Reports nasal discharge, Reports sinus pressure, Denies as per HPI, Denies bleeding gums, Denies dental pain, Denies dysphagia, Denies epistaxis, Denies headache, Denies hoarseness, Denies mouth pain, Denies nasal congestion, Denies neck fullness/pressure, Denies neck lump, Denies nose pain, Denies odynophagia, Denies post-nasal drip, Denies sinus pain, Denies swelling in mouth, Denies swelling in throat, Denies sore throat, Denies vertigo, Denies voice changes Cardiovascular: Reports chest pain, Reports dyspnea on exertion, Reports high blood pressure, Reports leg edema, Reports orthopnea, Reports palpitations, Reports rapid heart beat, Reports shortness of breath, Denies as per HPI, Denies claudication, Denies decreased exercise tolerance, Denies edema, Denies irregular heart beat, Denies lightheadedness, Denies paroxysmal nocturnal dyspnea, Denies phlebitis, Denies syncope Respiratory: Reports congestion, Reports dyspnea, Reports pain on inspiration, Denies as per HPI, Denies cough, Denies cough with sputum, Denies excessive sputum, Denies hemoptysis, Denies home oxygen, Denies pain, Denies pleurisy, Denies respiratory infections, Denies sleep apnea, Denies snoring, Denies wheezing Gastrointestinal: Reports bloating, Reports constipation, Reports dyspepsia, Reports early satiety, Reports indigestion, Reports nausea, Denies as per HPI, Denies abdominal pain, Denies belching, Denies BRBPR, Denies change in bowel habits, Denies coffee ground emesis, Denies diarrhea, Denies excessive gas, Denies heartburn, Denies hematemesis, Denies hematochezia, Denies jaundice, Denies lactose intolerance, Denies loss of appetite, Denies melena, Denies vomiting Genitourinary: Reports urinary frequency, Denies as per HPI, Denies abnormal vaginal bleeding, Denies decreased libido, Denies difficulty conceiving, Denies difficulty voiding, Denies dysmenorrhea, Denies dyspareunia, Denies dysuria, Denies flank pain, Denies genital sores, Denies hematuria, Denies hot flashes, Denies incomplete emptying, Denies kidney stones, Denies menorrhagia, Denies mixed incontinence, Denies nocturia, Denies pelvic pain, Denies post void dribbling, Denies , Denies prolapse symptoms, Denies stress incontinence , Denies urge incontinence, Denies urgency, Denies vaginal discharge, Denies vaginal dryness, Denies vaginal itching, Denies vaginal odor Menstruation: Denies as per HPI, Denies amenorrhea, Denies amenorrhea on BC, Denies currently menstrual, Denies cycle < 21 days, Denies cycle > 35 days, Denies cycle variable, Denies menses 1-7 days, Denies menses 8 or > days, Denies menses variable, Denies period heavy, Denies period light, Denies period normal, Denies period spotting, Denies post hysterectomy, Denies postmenopausal , Denies premenarcheal Musculoskeletal: Reports frequent falls, Reports gait dysfunction, Reports low back pain, Reports myalgias, Reports neck pain, Denies as per HPI, Denies arm numbness/tingling, Denies atrophy, Denies fractures, Denies hot joints, Denies leg numbness/tingling, Denies limitation of motion, Denies loss of height, Denies morning stiffness, Denies muscle cramps, Denies muscle weakness, Denies neck stiffness, Denies prior amputations, Denies redness of joints, Denies shooting arm pain, Denies shooting leg pain Musculoskeletal: bilateral: ankle pain Integumentary: Reports rash, Denies as per HPI, Denies acne, Denies boils, Denies brittle nails, Denies change in hair/nails, Denies color changes, Denies darkening of skin, Denies depigmentation, Denies dryness, Denies foot/leg ulcers , Denies growths, Denies hirsutism, Denies lesions, Denies onychomycosis, Denies pruritus, Denies sores, Denies striae, Denies unusual bruising, Denies wounds Neurological: Reports paresthesias, Reports tingling, Reports weakness, Denies as per HPI, Denies aphasia, Denies ataxia, Denies balance difficulties, Denies burning pain, Denies change in mentation, Denies change in smell/taste, Denies change in speech, Denies confusion, Denies convulsions, Denies double vision, Denies gait dysfunction, Denies head injury, Denies headaches, Denies hearing difficulties, Denies lack of coordination, Denies loss of vision, Denies memory loss, Denies migraines, Denies motor disturbance, Denies numbness, Denies paralysis, Denies seizures, Denies sensory deficit, Denies spasticity, Denies syncope, Denies tic, Denies transient paralysis, Denies tremors, Denies vertigo , Denies visual changes Psychiatric: Reports anxiety, Reports memory loss, Reports mood swings, Denies as per HPI, Denies anhedonia, Denies anxiety attacks, Denies change in appetite , Denies change in libido, Denies change in sleep habits, Denies confusion, Denies depression, Denies difficulty concentrating, Denies disorientation, Denies hallucinations, Denies hopelessness, Denies hypersomnia, Denies insomnia , Denies irritability, Denies paranoia, Denies sadness/tearfulness, Denies sleep disturbances, Denies suicidal ideation Endocrine: Reports fatigue, Reports nocturia, Reports polyphagia, Reports polyuria, Denies as per HPI, Denies cold intolerance, Denies deepening of the voice, Denies excessive sweating, Denies excessive thirst, Denies flushing, Denies heat intolerance, Denies high blood sugars, Denies increase in ring/shoe/ hat size, Denies low blood sugars, Denies palpitations, Denies polydipsia, Denies proptosis, Denies recent glucocorticoid use, Denies thyroid mass, Denies weight change Hematologic/Lymphatic: Reports easy bruising, Denies as per HPI, Denies easy bleeding, Denies lymphadenopathy, Denies lymphedema, Denies thrombophilia Allergic/Immunologic: Reports allergic rhinitis, Denies as per HPI, Denies anaphylaxis, Denies angioedema, Denies gluten intolerance, Denies persistent infections, Denies seasonal allergies, Denies urticaria, Denies wheezing Past Medical History Past Medical History: Chest Pain / Angina, Deep Vein Thrombosis (DVT), GERD/ Reflux, Hyperlipidemia, Hypertension, Pulmonary Embolus (PE), Syncope, Thyroid Disorder Additional Past Medical History / Comment(s): HAD THYROID NODULES(NON MALIGNANT) , PARKINSONS, "NERVE PAIN-TAKES GABAPENTIN", CONSTIPATION- History of Any Multi-Drug Resistant Organisms: None Reported Past Surgical History: Back Surgery, Cholecystectomy, Hernia Repair, Hysterectomy, Orthopedic Surgery, Tubal Ligation Additional Past Surgical History / Comment(s): EYE LID LIFT, PHIL ARTHOSCOPIC KNEES, L5-S1 LAMINECTOMY, THYROIDECTOMY, SPINAL FUSION 12/2013, EGD, PHIL CATARACTS. Past Anesthesia/Blood Transfusion Reactions: Postoperative Nausea & Vomiting ( PONV) Additional Past Anesthesia/Blood Transfusion Reaction / Comment(s): VERY SLOW TO WAKE UP Past Psychological History: Anxiety, Depression Smoking Status: Never smoker Past Alcohol Use History: None Reported Past Drug Use History: None Reported - Past Family History Mother Family Medical History: Coronary Artery Disease (CAD), CVA/TIA, Hypertension Father Family Medical History: Coronary Artery Disease (CAD), CVA/TIA, Hypertension Medications and Allergies Home Medications Medication Instructions Recorded Confirmed Type Pantoprazole Sodium [Protonix] 40 mg PO Q48H 12/26/13 04/17/17 History Aspirin 162 mg PO DAILY 05/04/15 04/17/17 History Calcium Carbonate/Vitamin D3 1 tab PO DAILY 05/04/15 04/17/17 History [Calcium 600-Vit D3 400 Tablet] Carboxymethylcellulose Sodium 1 drop BOTH EYES DAILY 05/04/15 04/17/17 History [Refresh Tears] Levothyroxine Sodium [Synthroid] 88 mcg PO DAILY 05/04/15 04/17/17 History Sertraline HCl 75 mg PO DAILY 05/04/15 04/17/17 History Vit C/E/Zn/Coppr/Lutein/Zeaxan 1 cap PO DAILY 05/04/15 04/17/17 History [Preservision Areds 2 Softgel] Carbidopa-Levodopa ER 25-100Mg 3 tab PO TID-W/MEALS 08/23/16 04/17/17 History [Sinemet CR 25-100 mg] Gabapentin [Neurontin] 300 mg PO QID 08/23/16 04/17/17 History Polyethylene Glycol 3350 [Miralax] 17 gm PO HS PRN 08/23/16 04/17/17 History Pravastatin Sodium [Pravachol] 20 mg PO DAILY 08/23/16 04/17/17 History Sennosides [Senna Lax] 17.2 - 34.4 mg PO HS 08/23/16 04/17/17 History amLODIPine [Norvasc] 5 mg PO DAILY #30 tab 08/26/16 04/17/17 Rx Ergocalciferol [Vitamin D2 50,000 unit PO Q14D 04/17/17 04/17/17 History (DRISDOL)] Allergies Allergy/AdvReac Type Severity Reaction Status Date / Time atorvastatin calcium Allergy Mild Nausea Verified 04/16/17 23:59 [From Lipitor] Nitrofuran Analogues Allergy Mild Rash/Hives Verified 04/16/17 23:59 Penicillins Allergy Mild Rash/Hives Verified 04/16/17 23:59 Sulfa (Sulfonamide Allergy Mild Nausea & Verified 04/16/17 23:59 Antibiotics) Vomiting clindamycin Allergy Rash/Hives Verified 04/16/17 23:59 Iodinated Contrast- Oral and Allergy Dyspnea Verified 04/16/17 23:59 IV Dye [Iodinated Contrast Media - IV Dye] Iodine and Iodide Containing Allergy Anaphylaxis Verified 04/16/17 23:59 Produc Physical Exam Vitals: Vital Signs Temp Pulse Pulse Resp BP BP Pulse Ox 04/17/17 07:00 97.6 F 63 18 154/60 96 04/17/17 05:44 98.7 F 60 18 162/75 98 04/17/17 04:40 66 18 187/78 98 04/17/17 03:40 58 L 18 161/72 97 04/17/17 02:40 62 18 174/68 97 04/17/17 01:46 62 18 183/74 97 04/17/17 00:46 97.4 F L 61 18 162/92 94 L 04/17/17 00:03 64 18 166/74 98 04/16/17 23:43 98 F 63 18 196/76 98 Intake and Output 04/16/17 04/17/17 04/17/17 22:59 06:59 14:59 Intake Total 144.531 Balance 144.531 Intake: Intake, IV Titration 144.531 Amount Heparin Sodium,Porcine/ 144.531 D5w Pmx 25,000 unit In Dextrose/Water 1 500ml. bag @ 18 UNITS/KG/HR 26. 12 mls/hr IV .Q19H9M [facility] Rx#:[id number] Other: Voiding Method Bedside Commode # Voids 1 2 Weight 72.575 kg - Constitutional General appearance: cooperative, no acute distress - EENT Eyes: no abnormal pupil, no anicteric sclerae, no disc margins sharp, no edentulous, no EOMI, no PERRLA, no fundus normal, no photophobia, no dentition normal, no poor dentition, no ptosis, no scleral icterus, normal appearance ENT: no hard of hearing, no hearing grossly normal, no NA/AT, normal oropharynx , no other, pharyngeal erythema, no thrush, no tonsillar exudates, no tonsillar swelling Ears: bilateral: normal - Neck Neck: no lymphadenopathy, normal ROM, no other, no rigidity, no stridor, no thyromegaly Carotids: bilateral: upstroke normal Thyroid: bilateral: normal size - Respiratory Respiratory: bilateral: CTA, diminished - Cardiovascular Rhythm: regular Heart sounds: normal: S1, S2 Abnormal Heart Sounds: systolic murmur, S3 Gallop - Gastrointestinal General gastrointestinal: no absent bowel sounds, no decreased bowel sounds, no distended, no hepatomegaly, no hyperactive bowel sounds, normal bowel sounds, no organomegaly, no rigid, no scaphoid, soft, no splenomegaly, no tenderness, no umbilical hernia, no ventral hernia - Integumentary Integumentary: no calor, no cellulitis, no cyanotic, no decreased turgor, no flushed, no jaundiced, normal, no normal turgor, pale, no rash, no ulcer - Neurologic Neurologic: CNII-XII intact - Musculoskeletal Musculoskeletal: no gait normal, generalized weakness, no strength equal bilaterally, no right sided weakness, no left sided weakness - Psychiatric Psychiatric: A&O x's 3, appropriate affect, no intact judgment & insight Results CBC & Chem 7: 04/16/17 23:45 04/16/17 23:45 Labs: Abnormal Lab Results - Last 24 Hours (Table) 04/16/17 04/16/17 04/17/17 Range/Units 23:45 23:45 08:24 APTT 129.1 H* (22.0-30.0) sec D-Dimer 1.37 H (<0.60) mg/L FEU Sodium 136 L (137-145) mmol/L Thrombosis Risk Factor Assmnt - DVT/VTE Prophylaxis DVT/VTE Prophylaxis: Pharmacologic Prophylaxis ordered, Mechanical Prophylaxis ordered - Choose All That Apply Any of the Below Risk Factors Present?: No Other Risk Factors: Yes Each Risk Factor Represents 3 Points: Age 75 years or older Other congenital or acquired thrombophilia - If yes, enter type in comment: No Thrombosis Risk Factor Assessment Total Risk Factor Score: 3 Thrombosis Risk Factor Assessment Level: Moderate Risk Assessment and Plan Plan: 1 pulmonary embolism: Possibly new, Doppler of both lower extremities be done will consult pulmonary patient is on anticoagulation currently. Patient son who is a day care teacher in [place] work in [facility] will be called and consult with him on once a final plan on anticoagulation because his mom with listen to him mostly, does want to go back on Xarelto and she still had fear of being on anticoagulation. If decision to start her on warfarin will be start in the next 24 hours. 2 shortness of breath and dyspnea: Secondary to PE continue oxygen and if need albuterol inhaler can be use as needed. 3 advance Parkinson disease: Patient is doing well on current dose of Sinemet. 4 hypothyroidism: Remain on levothyroxine. 5 hyperlipidemia: Still on Pravachol 20 mg daily. 6 chronic constipation: Has been on MiraLAX will add Senokot S twice a day as needed. 7 depression: Has been on Zoloft 50 mg daily. 8 chronic lower back pain and mild spinal stenosis post lower back surgery remain on gabapentin 300 mg 3 times a day and using Tylenol with no narcotic use lately. 9 GI prophylaxis: Patient remain on pantoprazole 40 mg daily. 10 DVT prophylaxis: She is on anticoagulation currently. CODE STATUS: Full code. Expectation from this admission: Patient be the hospital for more than 2 nights.
[2017-04-17] MEDS: ACETAMINOPHEN TAB 325 MG TAB PO PRN (17:16)
[2017-04-17] MEDS ORDERED: SENNOSIDES 8.6 MG TAB PO SCH (21:00)
[2017-04-17] MEDS ORDERED: POLYETHYLENE GLYCOL 3350 17 GM POWD.PACK PO SCH (21:00)
[2017-04-18] MEDS: ACETAMINOPHEN TAB 325 MG TAB PO PRN (00:22)
[2017-04-18] MEDS: SODIUM CHLORIDE 0.9% 1,000 ML IV SCH (06:09)
[2017-04-18] MEDS: CARBIDOPA-LEVODOPA ER 25-100MG 1 EACH TABLET.ER PO SCH (07:34)
[2017-04-18] MEDS: FAMOTIDINE 20 MG TAB PO SCH (07:35)
[2017-04-18] MEDS: PRAVASTATIN SODIUM 20 MG TAB PO SCH (07:35)
[2017-04-18] MEDS: LEVOTHYROXINE 88 MCG TAB PO SCH (07:35)
[2017-04-18] MEDS: GABAPENTIN 300 MG CAP PO SCH (07:35)
[2017-04-18] MEDS: PANTOPRAZOLE 40 MG TABLET PO SCH (07:35)
[2017-04-18] MEDS: SERTRALINE 50 MG TAB PO SCH (07:35)
[2017-04-18] MEDS: SENNOSIDES 8.6 MG TAB PO SCH (07:35)
[2017-04-18] MEDS: ASPIRIN 81 MG PO SCH (07:36)
[2017-04-18] MEDS: amLODIPine 5 MG TAB PO SCH (07:36)
[2017-04-18] MEDS: CALCIUM CARB-VIT D 500MG-200UN 1 EACH TAB PO SCH (07:36)
[2017-04-18] MEDS: ARTIFICIAL TEARS-HYPROMELLOSE DROPS 15 ML BTL BOTH EYES SCH (07:38)
[2017-04-18 08:01] VITALS: RESP 16
[2017-04-18 08:36] LABS: ALT 12 U/L (9-52); AST 24 U/L (14-36); Alkaline Phosphatase 95 U/L (38-126); Anion Gap 12 mmol/L; Blood Urea Nitrogen 12 mg/dL (7-17); Calcium 9.4 mg/dL (8.4-10.2); Carbon Dioxide 28 mmol/L (22-30); Chloride 104 mmol/L (98-107); Glucose 85 mg/dL (74-99); Non-African American GFR(MDRD) >60 (>60 ml/min/1.73 sqM); Potassium 3.6 mmol/L (3.5-5.1); Sodium 144 mmol/L (137-145); Total Bilirubin 0.5 mg/dL (0.2-1.3); Total Protein 7.9 g/dL (6.3-8.2)
[2017-04-18 08:49] LABS: Basophils % (A) 0 %; CH 27.7; CHCM 32.4; Eosinophils % (A) 1 %; HCT 41.2 % (34.0-46.0); HDW 2.57; HGB 13.7 gm/dL (11.4-16.0); Luc # (Auto) 0.08; Luc % (Auto) 1; Lymphocytes # (A) 1.6 k/uL (1.0-4.8); Lymphocytes % (A) 24 %; MCH 28.5 pg (25.0-35.0); MCHC 33.2 g/dL (31.0-37.0); MCV 85.9 fL (80.0-100.0); Mean Platelet Volume 8.9; Monocytes # (A) 0.6 k/uL (0-1.0); Monocytes % (A) 9 %; Neutrophils # (A) 4.2 k/uL (1.3-7.7); Neutrophils % (A) 65 %; RDW 13.8 % (11.5-15.5); WBC 6.5 k/uL (3.8-10.6); WBC (Perox) 6.63
[2017-04-18] MEDS ORDERED: APIXABAN 5 MG TAB PO SCH (10:00)
--- NOTE | 2017-04-18 10:43 | P.DS ---
Providers Date of admission: 04/17/17 03:13 Expected date of discharge: 04/18/17 Attending physician: Juan Olea Consults: 04/17/17 05:37 Consult Physician Routine Consulting Provider: Franky Cordon Consult Reason/Comments: pulmonary embolus Do you want consulting provider notified?: Yes Primary care physician: Juan Olea [facility] Course: 76-year-old female one of my office patient of known for the last 8 years with past medical history of advanced Parkinson disease chronic lower back pain history of hypertension hypothyroidism and hyperlipidemia who developed previous history of DVT and PE bilaterally post laminectomy and fusion of the spine a few years ago was on anticoagulation specifically Xarelto for total of 1 year had tolerated well till the last few weeks of Xarelto when patient developed to have increased bleeding mostly gastrointestinal along with nosebleed and other. Patient was off anticoagulation for more than 6 month at the time and decided to quit anticoagulation completely after consulting with hematology. Patient has been doing well till the last few days when developed to have worsening dyspnea on shortness of breath without exertion this morning she developed to have much worsening symptom with dyspnea shortness of breath mild chest pain and tightness with mild pleuritic-like symptoms as well ended up coming to the emergency department at [facility]. CTA performed and showed small PE in a smaller branch of the lung not in the main branch. Patient was started on anticoagulation with IV heparin after bolus was done and admitted to the hospital shortly after with the above problem. 04/18: Patient was evaluated today, she reports her dyspnea has improved. She reports she is doing well. Venous Doppler of bilateral lower extremities were negative for DVT. Pulmonary is on consult who recommends follow-up CT in about 8-12 weeks upon discharge. The patient will be discharged on Eliquis 10 mg twice a day 1 week then decrease to 5 mg twice a day. Discharge diagnoses 1 pulmonary embolism 2 shortness of breath and dyspnea 3 advance Parkinson disease 4 hypothyroidism 5 hyperlipidemia 6 chronic constipation 7 depression 8 chronic lower back pain and mild spinal stenosis The above impression and plan of care have been discussed and directed by signing physician. Colette Jose nurse practitioner acting as scribe for signing physician. Patient Condition at Discharge: Stable Plan - Discharge Summary New Discharge Prescriptions: New Apixaban [Eliquis] 5 mg PO BID #70 tab Continue Pantoprazole Sodium [Protonix] 40 mg PO Q48H Vit C/E/Zn/Coppr/Lutein/Zeaxan [Preservision Areds 2 Softgel] 1 cap PO DAILY Sertraline HCl 75 mg PO DAILY Levothyroxine Sodium [Synthroid] 88 mcg PO DAILY Carboxymethylcellulose Sodium [Refresh Tears] 1 drop BOTH EYES DAILY Aspirin 162 mg PO DAILY Calcium Carbonate/Vitamin D3 [Calcium 600-Vit D3 400 Tablet] 1 tab PO DAILY Gabapentin [Neurontin] 300 mg PO QID Pravastatin Sodium [Pravachol] 20 mg PO DAILY Carbidopa-Levodopa ER 25-100Mg [Sinemet CR 25-100 mg] 3 tab PO TID-W/MEALS Polyethylene Glycol 3350 [Miralax] 17 gm PO HS PRN PRN Reason: Constipation Sennosides [Senna Lax] 17.2 - 34.4 mg PO HS amLODIPine [Norvasc] 5 mg PO DAILY #30 tab Ergocalciferol [Vitamin D2 (DRISDOL)] 50,000 unit PO Q14D Discharge Medication List Pantoprazole Sodium [Protonix] 40 mg PO Q48H 12/26/13 [History] Aspirin 162 mg PO DAILY 05/04/15 [History] Calcium Carbonate/Vitamin D3 [Calcium 600-Vit D3 400 Tablet] 1 tab PO DAILY 08/18 [History] Carboxymethylcellulose Sodium [Refresh Tears] 1 drop BOTH EYES DAILY 05/04/15 [ History] Levothyroxine Sodium [Synthroid] 88 mcg PO DAILY 05/04/15 [History] Sertraline HCl 75 mg PO DAILY 05/04/15 [History] Vit C/E/Zn/Coppr/Lutein/Zeaxan [Preservision Areds 2 Softgel] 1 cap PO DAILY 08/18 [History] Carbidopa-Levodopa ER 25-100Mg [Sinemet CR 25-100 mg] 3 tab PO TID-W/MEALS 08/23 [History] Gabapentin [Neurontin] 300 mg PO QID 08/23/16 [History] Polyethylene Glycol 3350 [Miralax] 17 gm PO HS PRN 08/23/16 [History] Pravastatin Sodium [Pravachol] 20 mg PO DAILY 08/23/16 [History] Sennosides [Senna Lax] 17.2 - 34.4 mg PO HS 08/23/16 [History] amLODIPine [Norvasc] 5 mg PO DAILY #30 tab 08/26/16 [Rx] Ergocalciferol [Vitamin D2 (DRISDOL)] 50,000 unit PO Q14D 04/17/17 [History] Apixaban [Eliquis] 5 mg PO BID #70 tab 04/18/17 [Rx] Follow up Appointment(s)/Referral(s): [facility], [NON-STAFF] - Juan Olea MD [Primary Care Provider] - 1-2 days Discharge Disposition: HOME WITH HOME HEALTH SERVICES
--- NOTE | 2017-04-18 10:48 | P.PN ---
Subjective Progress note dated 04/18/2017 This is a very pleasant 76-year-old female who we saw yesterday in consultation. She has a history of a new onset pulmonary embolism involving left lower lobe sepsis subsegmental branch of the pulmonary artery. The clot burden was relatively small. The clot seems be unprovoked. She has a previous history of pulmonary most him about 3 years ago. At that time she was treated with a factor X a inhibitor for about 3 months. She had a reaction to it. Interestingly, her hospitalist. Back on another factor X a inhibitor but the opposite drug. It will be interesting to see if she has a reaction. She is going be discharged home today. She's feeling well. Denies any shortness breath chest pain chest discomfort. No other issues. Doppler of lower extremity was negative for deep venous thrombosis. In my opinion she should be treated for at least 6 months and you might give consideration for treatment for a year at this point. Objective - Vital Signs Vital signs: Vital Signs Temp 98.2 F 04/18/17 07:00 Pulse 59 L 04/18/17 07:00 Resp 16 04/18/17 07:00 BP 152/69 04/18/17 07:00 Pulse Ox 97 04/18/17 07:00 Intake & Output 04/17/17 04/18/17 04/18/17 18:59 06:59 18:59 Intake Total 262.089 869.045 240.196 Balance 262.089 869.045 240.196 Intake: Intake, IV Titration 262.089 144.045 240.196 Amount Heparin Sodium,Porcine/ 262.089 144.045 240.196 D5w Pmx 25,000 unit In Dextrose/Water 1 500ml. bag @ 18 UNITS/KG/HR 26. 12 mls/hr IV .Q19H9M [facility] Rx#:[id number] Oral 725 Other: Voiding Method Bedside Commode Bedside Commode Bedside Commode # Voids 3 3 1 - Exam No acute distress, oriented 3. HEENT examination is grossly unremarkable. Mucous membranes are moist. No oral lesions. Neck supple. Full range of motion. Cardio vascular examination reveals a regular rhythm rate. S1-S2 normal. No murmur. No S3 or S4. Lungs clear breath sounds equal. No wheezes rhonchi or crackles. Abdomen soft bowel sounds are heard. Extremities are intact. No cyanosis clubbing or edema. Skin without rash. - Labs CBC & Chem 7: 04/18/17 07:45 04/18/17 07:45 Labs: Abnormal Lab Results - Last 24 Hours (Table) 04/17/17 04/18/17 Range/Units 15:30 07:45 APTT 68.5 H 60.7 H (22.0-30.0) sec Assessment and Plan (1) Pulmonary embolism Status: Acute (2) Chronic anemia Status: Acute (3) Dyspnea Status: Acute (4) History of Parkinson's disease Status: Acute (5) Hypertension Status: Acute (6) Pulmonary hypertension, moderate to severe Status: Acute Plan: Plan dated 04/17/2017 The patient said doing well. A Doppler of lower extremities was ordered and was being done as we are seeing the patient. It appears that the patient probably cannot tolerate a factor X a inhibitor. The patient probably should be treated acutely with IV heparin. She should be started on Coumadin. She should be treated for at least 6 months and maybe longer. This was an unprovoked clot. This is not like to for clot which was provoked secondary to a spinal fusion surgery. The patient will need follow-up in the office. The patient will need a follow-up computed tomography scan about 8-12 weeks down the line. Additional recommendations suggestions are forthcoming. Plan dated 04/18/2017 The patient has a diagnosis same a left lower lobe pulmonary embolism. This is her second clot. She had one 3 years ago. Treated 3 month of the factor X a inhibitor. She also has a history of chronic anemia Parkinson's disease hypertension and moderate pulmonary hypertension. She is going be discharged home today. Doppler lower extremity was negative. I recommended at least 6 months of treatment. He'll be interesting to see if she can tolerate the drug she was going to be discharged home on as she had a reaction to some other drug in the same class. Additional recommendations suggestions are forthcoming. If she cannot tolerate this drug, she'll need either Lovenox subcu at 1 mg/kg body weight twice a day or warfarin Time with Patient: Less than 30
[2017-04-18 15:21] VITALS: BP 126/61; PULSE 66; TEMP 96.8
== END 2017-04-18 15:04 | disposition home health service (06) | DRG 176 ==
LOC: EC 23:42 → 4MS4W 04-17 03:13
PROVIDERS: ADMIT Internal Medicine Geriatric Medicine; ATTEND Internal Medicine Geriatric Medicine
DX: I26.99 Other pulmonary embolism without acute cor pulmonale (principal); G20 Parkinson's disease; I27.2 Other secondary pulmonary hypertension; G89.29 Other chronic pain; E78.5 Hyperlipidemia, unspecified; I10 Essential (primary) hypertension; E89.0 Postprocedural hypothyroidism; R51 Headache; D64.9 Anemia, unspecified; M48.00 Spinal stenosis, site unspecified; K21.9 Gastro-esophageal reflux disease without esophagitis; R09.02 Hypoxemia; F41.9 Anxiety disorder, unspecified; F32.9 Major depressive disorder, single episode, unspecified; K59.09 Other constipation; Z86.718 Personal history of other venous thrombosis and embolism; Z86.711 Personal history of pulmonary embolism; Z87.19 Personal history of other diseases of the digestive system; Z98.1 Arthrodesis status; Z88.0 Allergy status to penicillin; Z88.2 Allergy status to sulfonamides; Z88.8 Allergy status to other drugs, medicaments and biological substances; Z88.1 Allergy status to other antibiotic agents; Z91.041 Radiographic dye allergy status; Z79.899 Other long term (current) drug therapy; Z79.82 Long term (current) use of aspirin; Z82.49 Family history of ischemic heart disease and other diseases of the circulatory system; Z86.2 Personal history of diseases of the blood and blood-forming organs and certain disorders involving the immune mechanism; Z82.3 Family history of stroke; Z98.42 Cataract extraction status, left eye; Z98.41 Cataract extraction status, right eye; Z98.51 Tubal ligation status; Z86.79 Personal history of other diseases of the circulatory system; Z90.49 Acquired absence of other specified parts of digestive tract; Z90.710 Acquired absence of both cervix and uterus
CPT/HCPCS: 36415; 71020; 71275; 80053; 82272; 82550; 82553; 83735; 83880; 84484; 85025; 85379; 85610; 85730; 93005; 93970; 96365; 96366; 96375; 96376; 99285

== ENCOUNTER 2017-05-06 23:15 | Emergency (ER) | payer MEDICARE ==
[2017-05-06] MEDS ORDERED: APIXABAN 5 MG TAB PO STA (23:45)
[2017-05-06] MEDS ORDERED: IPRATROPIUM-ALBUTEROL 3 ML NEB INHALATION STA (23:46)
--- NOTE | 2017-05-06 23:53 | ED ---
SOB HPI - General Source: patient Mode of arrival: wheelchair Limitations: no limitations <Franky Richardson - Last Filed: 05/07/17 00:37> <Franky Butts - Last Filed: 05/07/17 01:45> - General Chief Complaint: Shortness of Breath Stated Complaint: ERIC- Prev PE Time Seen by Provider: 05/06/17 23:37 - History of Present Illness Initial Comments: This 76-year-old white female presents with a complaint of some shortness of breath. She states that it started today. She has had a slight nonproductive cough. She denies any actual fevers but states that she felt hot at one point. She states that she has had some dysuria as well as some hematuria which started today. When she urinated she states that she developed some chest pain. The chest pain only occurred when she urinated and this occurred 3 times. She complains of some slight pain in her suprapubic region. She has felt minimally weak. She relates that she was diagnosed with pulmonary embolisms several weeks ago and currently is on Elavil was. She denies missing any of her doses of this medication except for she is late for it tonight. This apparently is the third time that she has been diagnosed with pulmonary embolisms. She denies any other lung or heart pathology. She denies any history of coronary artery disease, asthma, COPD. No other complaints or modifying factors. (Franky Richardson) - Related Data Home Medications Medication Instructions Recorded Confirmed Pantoprazole Sodium [Protonix] 40 mg PO Q48H 12/26/13 05/06/17 Calcium Carbonate/Vitamin D3 1 tab PO DAILY 05/04/15 05/06/17 [Calcium 600-Vit D3 400 Tablet] Carboxymethylcellulose Sodium 1 drop BOTH EYES DAILY 05/04/15 05/06/17 [Refresh Tears] Levothyroxine Sodium [Synthroid] 88 mcg PO DAILY 05/04/15 05/06/17 Sertraline HCl 75 mg PO DAILY 05/04/15 05/06/17 Vit C/E/Zn/Coppr/Lutein/Zeaxan 1 cap PO DAILY 05/04/15 05/06/17 [Preservision Areds 2 Softgel] Carbidopa-Levodopa ER 25-100Mg 3 tab PO TID-W/MEALS 08/23/16 05/06/17 [Sinemet CR 25-100 mg] Gabapentin [Neurontin] 300 mg PO BID@0800,1200 08/23/16 05/06/17 Polyethylene Glycol 3350 [Miralax] 17 gm PO HS PRN 08/23/16 05/06/17 Sennosides [Senna Lax] 17.2 - 34.4 mg PO HS 08/23/16 05/06/17 Ergocalciferol [Vitamin D2 50,000 unit PO Q14D 04/17/17 05/06/17 (DRISDOL)] Gabapentin [Neurontin] 600 mg PO HS 05/06/17 05/06/17 amLODIPine [Norvasc] 5 mg PO DAILY 05/06/17 05/06/17 Previous Rx's Medication Instructions Recorded Apixaban [Eliquis] 5 mg PO BID #70 tab 04/18/17 Cephalexin [Keflex] 500 mg PO Q12HR #14 cap 05/07/17 Allergies Allergy/AdvReac Type Severity Reaction Status Date / Time atorvastatin calcium Allergy Mild Nausea Verified 05/06/17 23:53 [From Lipitor] Nitrofuran Analogues Allergy Mild Rash/Hives Verified 05/06/17 23:53 Penicillins Allergy Mild Rash/Hives Verified 05/06/17 23:53 Sulfa (Sulfonamide Allergy Mild Nausea & Verified 05/06/17 23:53 Antibiotics) Vomiting clindamycin Allergy Rash/Hives Verified 05/06/17 23:53 Iodinated Contrast- Oral and Allergy Dyspnea Verified 05/06/17 23:53 IV Dye [Iodinated Contrast Media - IV Dye] Iodine and Iodide Containing Allergy Anaphylaxis Verified 05/06/17 23:53 Produc Review of Systems ROS Other: All systems not noted in ROS Statement are negative. <Franky Richardson - Last Filed: 05/07/17 00:37> ROS Other: All systems not noted in ROS Statement are negative. <Franky Butts - Last Filed: 05/07/17 01:45> ROS Statement: Those systems with pertinent positive or pertinent negative responses have been documented in the HPI. Past Medical History Past Medical History: Chest Pain / Angina, Deep Vein Thrombosis (DVT), GERD/ Reflux, Hyperlipidemia, Hypertension, Pulmonary Embolus (PE), Syncope, Thyroid Disorder Additional Past Medical History / Comment(s): HAD THYROID NODULES(NON MALIGNANT) , PARKINSONS, "NERVE PAIN-TAKES GABAPENTIN", CONSTIPATION- History of Any Multi-Drug Resistant Organisms: None Reported Past Surgical History: Back Surgery, Cholecystectomy, Hernia Repair, Hysterectomy, Orthopedic Surgery, Tubal Ligation Additional Past Surgical History / Comment(s): EYE LID LIFT, PHIL ARTHOSCOPIC KNEES, L5-S1 LAMINECTOMY, THYROIDECTOMY, SPINAL FUSION 12/2013, EGD, PHIL CATARACTS. Past Anesthesia/Blood Transfusion Reactions: Postoperative Nausea & Vomiting ( PONV) Additional Past Anesthesia/Blood Transfusion Reaction / Comment(s): VERY SLOW TO WAKE UP Past Psychological History: Anxiety, Depression Smoking Status: Never smoker Past Alcohol Use History: None Reported Past Drug Use History: None Reported - Past Family History Mother Family Medical History: Coronary Artery Disease (CAD), CVA/TIA, Hypertension Father Family Medical History: Coronary Artery Disease (CAD), CVA/TIA, Hypertension <Franky Richardson - Last Filed: 05/07/17 00:37> General Exam Limitations: no limitations <Franky Richardson - Last Filed: 05/07/17 00:37> <Franky Butts - Last Filed: 05/07/17 01:45> - General Exam Comments Initial Comments: GENERAL: The patient is well nourished and well hydrated. VITAL SIGNS: Heart rate, blood pressure, respiratory rate reviewed as recorded in nurse's notes. EYES: Pupils are round and reactive. Extraocular movements are intact. No conjunctival / lid redness or swelling. ENT: No external evidence of injury, swelling, or ecchymosis. Airway is patent. Throat is clear. NECK: Nontender. No swelling or evidence of injury. No subcutaneous emphysema. Trachea is midline. No thyroid mass. HEART: Regular rate and rhythm. Good peripheral pulses. LUNGS/CHEST: Breath sounds clear and equal bilaterally. No rales, rhonchi, or wheezes. No ecchymosis, subcutaneous emphysema, or tenderness. ABDOMEN: Abdomen soft without tenderness. No palpable masses or organomegaly. No peritoneal signs. No abdominal wall swelling or ecchymosis. EXTREMITIES: No extremity tenderness. Normal muscle tone and function. No thoracolumbar tenderness. NEUROLOGIC: Sensation is grossly intact. Cranial nerve exam reveals face is symmetrical, tongue is midline, speech is clear. SKIN: No abrasions or ecchymosis is noted. No induration or masses noted. PSYCHIATRIC: Alert and oriented. Appropriate behavior and judgment. (Franky Richardson) Medical Decision Making - Lab Data Result diagrams: 05/06/17 22:53 05/06/17 22:53 <Franky Richardson - Last Filed: 05/07/17 00:37> - Lab Data Result diagrams: 05/06/17 22:53 05/06/17 22:53 <Franky Butts - Last Filed: 05/07/17 01:45> - Medical Decision Making The patient is seen and examined. All diagnostics are reviewed. The patient is an EKG done which shows a sinus rhythm at a rate of 68. There is no acute ST -T wave changes identified. The OK interval is 212, QRS duration is 98, and the QTc interval is 427. An IV is started. Patient receives a DuoNeb breathing treatment. She also some Zofran for nausea. Her Eliquis dose is ordered. The chest x-ray does not show any acute processes. The laboratory came back all essentially within normal limits. (Franky Richardson) Patient was signed out awaiting urinalysis. I reevaluated the patient at the time sign out. She was resting comfortably in bed. No complaints shortness of breath. She did report this mild lower abdominal pain. She is nontender on examination. No fever, vital signs are stable. Patient does have a pulmonary embolism and is currently on L Huang. Urinalysis shows 20 RBCs and 19 wbc's with rare bacteria. Patient will be treated empirically for UTI. Urine culture is pending. Laboratory studies including CBC, CMP, troponin, and BMP are unremarkable. Chest x-ray shows no acute findings. I was able speak with the patient's son who is a physician he was updated as to my findings. (Franky Butts) - Lab Data Lab Results 05/06/17 05/06/17 05/06/17 Range/Units 22:53 22:53 22:53 WBC 7.0 (3.8-10.6) k/uL RBC 4.42 (3.80-5.40) m/uL Hgb 12.1 (11.4-16.0) gm/dL Hct 37.8 (34.0-46.0) % MCV 85.5 (80.0-100.0) fL MCH 27.3 (25.0-35.0) pg MCHC 32.0 (31.0-37.0) g/dL RDW 14.4 (11.5-15.5) % Plt Count 219 (150-450) k/uL Neutrophils % 77 % Lymphocytes % 12 % Monocytes % 8 % Eosinophils % 1 % Basophils % 0 % Neutrophils # 5.4 (1.3-7.7) k/uL Lymphocytes # 0.9 L (1.0-4.8) k/uL Monocytes # 0.6 (0-1.0) k/uL Eosinophils # 0.1 (0-0.7) k/uL Basophils # 0.0 (0-0.2) k/uL PT (9.0-12.0) sec INR (<1.2) APTT (22.0-30.0) sec Sodium 135 L (137-145) mmol/L Potassium 4.0 (3.5-5.1) mmol/L Chloride 100 (98-107) mmol/L Carbon Dioxide 24 (22-30) mmol/L Anion Gap 11 mmol/L BUN 13 (7-17) mg/dL Creatinine 0.70 (0.52-1.04) mg/dL Est GFR (MDRD) Af Amer >60 (>60 ml/min/1.73 sqM) Est GFR (MDRD) Non-Af >60 (>60 ml/min/1.73 sqM) Glucose 116 H (74-99) mg/dL Calcium 9.2 (8.4-10.2) mg/dL Total Bilirubin 0.5 (0.2-1.3) mg/dL AST 19 (14-36) U/L ALT 17 (9-52) U/L Alkaline Phosphatase 94 (38-126) U/L Total Creatine Kinase 50 (30-135) U/L CK-MB (CK-2) 1.6 (0.0-2.4) ng/mL CK-MB (CK-2) Rel Index 3.2 Troponin I <0.012 (0.000-0.034) ng/mL NT-Pro-B Natriuret Pep pg/mL Total Protein 6.9 (6.3-8.2) g/dL Albumin 3.9 (3.5-5.0) g/dL Urine Color Urine Appearance (Clear) Urine pH (5.0-8.0) Ur Specific [place]ro[place] (1.001-1.035) Urine Protein (Negative) Urine Glucose (UA) (Negative) Urine Ketones (Negative) Urine Blood (Negative) Urine Nitrite (Negative) Urine Bilirubin (Negative) Urine Urobilinogen (<2.0) mg/dL Ur Leukocyte Esterase (Negative) Urine RBC (0-5) /hpf Urine WBC (0-5) /hpf Urine WBC Clumps (None) /hpf Ur Squamous Epith Cells (0-4) /hpf Ur Transition Epith Cell (0-1) /hpf Urine Bacteria (None) /hpf 05/06/17 05/06/17 05/07/17 Range/Units 22:53 22:53 01:10 WBC (3.8-10.6) k/uL RBC (3.80-5.40) m/uL Hgb (11.4-16.0) gm/dL Hct (34.0-46.0) % MCV (80.0-100.0) fL MCH (25.0-35.0) pg MCHC (31.0-37.0) g/dL RDW (11.5-15.5) % Plt Count (150-450) k/uL Neutrophils % % Lymphocytes % % Monocytes % % Eosinophils % % Basophils % % Neutrophils # (1.3-7.7) k/uL Lymphocytes # (1.0-4.8) k/uL Monocytes # (0-1.0) k/uL Eosinophils # (0-0.7) k/uL Basophils # (0-0.2) k/uL PT 10.9 (9.0-12.0) sec INR 1.1 (<1.2) APTT 25.8 (22.0-30.0) sec Sodium (137-145) mmol/L Potassium (3.5-5.1) mmol/L Chloride (98-107) mmol/L Carbon Dioxide (22-30) mmol/L Anion Gap mmol/L BUN (7-17) mg/dL Creatinine (0.52-1.04) mg/dL Est GFR (MDRD) Af Amer (>60 ml/min/1.73 sqM) Est GFR (MDRD) Non-Af (>60 ml/min/1.73 sqM) Glucose (74-99) mg/dL Calcium (8.4-10.2) mg/dL Total Bilirubin (0.2-1.3) mg/dL AST (14-36) U/L ALT (9-52) U/L Alkaline Phosphatase (38-126) U/L Total Creatine Kinase (30-135) U/L CK-MB (CK-2) (0.0-2.4) ng/mL CK-MB (CK-2) Rel Index Troponin I (0.000-0.034) ng/mL NT-Pro-B Natriuret Pep 257 pg/mL Total Protein (6.3-8.2) g/dL Albumin (3.5-5.0) g/dL Urine Color Light Yellow Urine Appearance Clear (Clear) Urine pH 6.5 (5.0-8.0) Ur Specific [place] 1.003 (1.001-1.035) Urine Protein Negative (Negative) Urine Glucose (UA) Negative (Negative) Urine Ketones Negative (Negative) Urine Blood Moderate H (Negative) Urine Nitrite Negative (Negative) Urine Bilirubin Negative (Negative) Urine Urobilinogen <2.0 (<2.0) mg/dL Ur Leukocyte Esterase Large H (Negative) Urine RBC 20 H (0-5) /hpf Urine WBC 19 H (0-5) /hpf Urine WBC Clumps Rare H (None) /hpf Ur Squamous Epith Cells <1 (0-4) /hpf Ur Transition Epith Cell <1 (0-1) /hpf Urine Bacteria Rare H (None) /hpf Disposition <Franky Richardson - Last Filed: 05/07/17 00:37> Time of Disposition: 01:45 <Franky Butts - Last Filed: 05/07/17 01:45> Clinical Impression: Dyspnea, Hypertension, Hematuria, Pulmonary embolism, UTI (urinary tract infection) Disposition: HOME SELF-CARE Condition: Good Instructions: Urinary Tract Infection in Women (ED) Prescriptions: Cephalexin [Keflex] 500 mg PO Q12HR #14 cap Referrals: Juan Olea MD [Primary Care Provider] - 1-2 days
[2017-05-07 00:07] LABS: ALT 17 U/L (9-52); AST 19 U/L (14-36); Alkaline Phosphatase 94 U/L (38-126); Anion Gap 11 mmol/L; Basophils % (A) 0 %; Blood Urea Nitrogen 13 mg/dL (7-17); CH 28.5; CHCM 33.5; Calcium 9.2 mg/dL (8.4-10.2); Carbon Dioxide 24 mmol/L (22-30); Chloride 100 mmol/L (98-107); Eosinophils # (A) 0.1 k/uL (0-0.7); Eosinophils % (A) 1 %; Glucose 116 mg/dL (74-99); HCT 37.8 % (34.0-46.0); HDW 2.57; HGB 12.1 gm/dL (11.4-16.0); Luc # (Auto) 0.11; Luc % (Auto) 2; Lymphocytes # (A) 0.9 k/uL (1.0-4.8); Lymphocytes % (A) 12 %; MCH 27.3 pg (25.0-35.0); MCV 85.5 fL (80.0-100.0); Mean Platelet Volume 7.8; Monocytes # (A) 0.6 k/uL (0-1.0); Monocytes % (A) 8 %; Neutrophils # (A) 5.4 k/uL (1.3-7.7); Neutrophils % (A) 77 %; Non-African American GFR(MDRD) >60 (>60 ml/min/1.73 sqM); RBC 4.42 m/uL (3.80-5.40); RDW 14.4 % (11.5-15.5); Sodium 135 mmol/L (137-145); Total Bilirubin 0.5 mg/dL (0.2-1.3); Total Protein 6.9 g/dL (6.3-8.2); WBC (Perox) 7.35
[2017-05-07 00:09] LABS: Creatine Kinase 50 U/L (30-135)
[2017-05-07 00:19] LABS: INR 1.1 (<1.2); Partial Thromboplastin Time 25.8 sec (22.0-30.0); Prothrombin Time 10.9 sec (9.0-12.0)
[2017-05-07 00:22] LABS: Creatine Kinase MB 1.6 ng/mL (0.0-2.4); Troponin I <0.012 ng/mL (0.000-0.034)
--- NOTE | 2017-05-07 00:35 | XR ---
EXAMINATION TYPE: XR chest 2V DATE OF EXAM: 05/07/2017 COMPARISON: 04/17/2017 HISTORY: Difficulty breathing TECHNIQUE: Frontal and lateral views of the chest are obtained. FINDINGS: There is no heart failure nor confluent pneumonic infiltrate. Thoracic aorta is atheromato us. There is no pleural effusion. Bony thorax appears intact. IMPRESSION: No active cardiopulmonary disease. No change.
[2017-05-07 01:35] LABS: Appearance,Urine Clear (Clear); Bacteria,Urine Rare /hpf; Bilirubin,Urine Negative (Negative); Glucose,Urine (UA) Negative (Negative); Ketones,Urine Negative (Negative); Leukocyte Esterase,Urine Large (Negative); Nitrite,Urine Negative (Negative); PH, Urine 6.5 (5.0-8.0); Particle Count 650; Protein,Urine Negative (Negative); RBC,Urine 20 /hpf (0-5); Specific Gravity,Urine 1.003 (1.001-1.035); Squamous Epithelial Cell,Urine <1 /hpf (0-4); Transitional Epi Cells,Urine <1 /hpf (0-1); UA Billing (MACRO vs. MICRO) MICRO; Urobilinogen,Urine <2.0 mg/dL (<2.0); WBC,Urine 19 /hpf (0-5)
[2017-05-07 02:25] VITALS: BP 160/70; PULSE 65; RESP 16; TEMP 99
== END 2017-05-07 02:23 | disposition home or self-care (01) ==
LOC: EC 23:15
DX: I26.99 Other pulmonary embolism without acute cor pulmonale (principal); N39.0 Urinary tract infection, site not specified; I10 Essential (primary) hypertension; K21.9 Gastro-esophageal reflux disease without esophagitis; G20 Parkinson's disease; K59.00 Constipation, unspecified; E07.89 Other specified disorders of thyroid; F32.9 Major depressive disorder, single episode, unspecified; F41.9 Anxiety disorder, unspecified; Z79.899 Other long term (current) drug therapy; Z88.0 Allergy status to penicillin; Z88.1 Allergy status to other antibiotic agents; Z88.2 Allergy status to sulfonamides; Z88.8 Allergy status to other drugs, medicaments and biological substances; Z91.041 Radiographic dye allergy status; Z91.048 Other nonmedicinal substance allergy status; Z86.69 Personal history of other diseases of the nervous system and sense organs; Z86.79 Personal history of other diseases of the circulatory system; Z82.49 Family history of ischemic heart disease and other diseases of the circulatory system
CPT/HCPCS: 36415; 71020; 80053; 81001; 82550; 82553; 83880; 84484; 85025; 85610; 85730; 87040; 87077; 87086; 87186; 93005; 94640; 99285

== ENCOUNTER → 2017-08-28 | Outpatient (CLI) | payer MEDICARE ==
[2017-08-28 15:40] LABS: INR 1.1 (<1.2); Prothrombin Time 10.8 sec (9.0-12.0)
[2017-08-29 01:43] LABS: Cardiolipin Ab IgG Interp NEGATIVE (NEGATIVE); Cardiolipin Ab IgM Interp NEGATIVE (NEGATIVE); Cardiolipin IgA Antibody <0.5 U/mL; Cardiolipin IgM Antibody 0.2 U/mL
[2017-08-29 11:19] LABS: Anti-Thrombin III Activity 125 % (79-109)
[2017-08-29 11:20] LABS: Protein C (Activity) 98 % (71-138)
[2017-08-29 12:40] LABS: Immunoglobulin M 75.6 mg/dL (40.0-280.0)
[2017-08-29 14:21] LABS: Protein S Antigen 102 % (50 - 140)
[2017-08-29 14:50] LABS: APTT 39 Sec(s) (<43); DRVVT 1:1 Mix 46 Sec(s) (<44); DRVVT Confirmation Negative (Negative); Dilute Russell Viper Venom 56 Sec(s) (<44)
== END | disposition home or self-care (01) ==
LOC: LABWHC1 14:28
PROVIDERS: ATTEND Internal Medicine Critical Care Medicine
DX: I26.99 Other pulmonary embolism without acute cor pulmonale (principal)
CPT/HCPCS: 36415; 81240; 81241; 81291; 82784; 85300; 85303; 85305; 85610; 85613; 85730; 86147

== ENCOUNTER → 2017-09-15 | Outpatient (CLI) | payer MEDICARE ==
--- NOTE | 2017-09-16 11:25 | MM ---
Reason for exam: screening (asymptomatic). Last mammogram was performed 1 year ago. History: Patient is postmenopausal. Physical Findings: A clinical breast exam by your physician is recommended on an annual basis and results should be correlated with mammographic findings. MG 3D Screening Mammo W/Cad Bilateral CC and MLO view(s) were taken. Prior study comparison: September 05, 2016, bilateral MG 3d screening mammo w/cad. September 26, 2014, bilateral MG screening mammo w CAD. There are scattered fibroglandular densities. Stable benign calcifications. There is no discrete abnormality. No significant changes when compared with prior studies. ASSESSMENT: Benign, BI-RAD 2 RECOMMENDATION: Routine screening mammogram of both breasts in 1 year.
== END | disposition home or self-care (01) ==
LOC: RADMAMWWP 14:46
PROVIDERS: ATTEND Internal Medicine Geriatric Medicine
DX: Z12.31 Encounter for screening mammogram for malignant neoplasm of breast (principal)
CPT/HCPCS: 77063; 77067

== ENCOUNTER 2017-11-24 01:35 | Emergency (ER) | payer MEDICARE ==
[2017-11-24] MEDS ORDERED: KETOROLAC 30 MG/ML 1 ML VIAL IM STA (02:02)
--- NOTE | 2017-11-24 02:02 | ED ---
General Adult HPI - General Chief complaint: Fall Stated complaint: shoulder pain Time Seen by Provider: 11/24/17 01:38 Source: patient, EMS, RN notes reviewed, old records reviewed Mode of arrival: EMS Limitations: no limitations - History of Present Illness Initial comments: 77-year-old female presenting with left shoulder pain. Patient fell 2 weeks ago. She has had worsening pain in her left shoulder since the fall. Over the past several days it has become severe, worse with any kind of movement. She has significant pain when putting on her shirt. She did fall onto this arm. She is right handed. She noted some bruising in her right lower extremity after the fall which is improving. No pain with ambulation. No head or neck trauma at the time of the fall. Again injury occurred 2 weeks ago and pain is been present since that time although minimal initially, worse over the past several days. No weakness in the left arm, no numbness or tingling. Patient is comfortable as long she does not move her shoulder. No chest pain or dyspnea. No abdominal pain. - Related Data Home Medications Medication Instructions Recorded Confirmed Pantoprazole Sodium [Protonix] 40 mg PO Q48H 12/26/13 05/06/17 Calcium Carbonate/Vitamin D3 1 tab PO DAILY 05/04/15 05/06/17 [Calcium 600-Vit D3 400 Tablet] Carboxymethylcellulose Sodium 1 drop BOTH EYES DAILY 05/04/15 05/06/17 [Refresh Tears] Levothyroxine Sodium [Synthroid] 88 mcg PO DAILY 05/04/15 05/06/17 Sertraline HCl 75 mg PO DAILY 05/04/15 05/06/17 Vit C/E/Zn/Coppr/Lutein/Zeaxan 1 cap PO DAILY 05/04/15 05/06/17 [Preservision Areds 2 Softgel] Carbidopa-Levodopa ER 25-100Mg 3 tab PO TID-W/MEALS 08/23/16 05/06/17 [Sinemet CR 25-100 mg] Gabapentin [Neurontin] 300 mg PO BID@0800,1200 08/23/16 05/06/17 Polyethylene Glycol 3350 [Miralax] 17 gm PO HS PRN 08/23/16 05/06/17 Sennosides [Senna Lax] 17.2 - 34.4 mg PO HS 08/23/16 05/06/17 Ergocalciferol [Vitamin D2 50,000 unit PO Q14D 04/17/17 05/06/17 (DRISDOL)] Gabapentin [Neurontin] 600 mg PO HS 05/06/17 05/06/17 amLODIPine [Norvasc] 5 mg PO DAILY 05/06/17 05/06/17 Previous Rx's Medication Instructions Recorded Apixaban [Eliquis] 5 mg PO BID #70 tab 04/18/17 Cephalexin [Keflex] 500 mg PO Q12HR #14 cap 05/07/17 Levofloxacin [Levaquin] 250 mg PO DAILY #5 tab 05/07/17 Ibuprofen [Motrin] 600 mg PO Q8HR PRN #24 tab 11/24/17 Allergies Allergy/AdvReac Type Severity Reaction Status Date / Time atorvastatin calcium Allergy Mild Nausea Verified 11/24/17 01:42 [From Lipitor] Nitrofuran Analogues Allergy Mild Rash/Hives Verified 11/24/17 01:42 Penicillins Allergy Mild Rash/Hives Verified 11/24/17 01:42 Sulfa (Sulfonamide Allergy Mild Nausea & Verified 11/24/17 01:42 Antibiotics) Vomiting clindamycin Allergy Rash/Hives Verified 11/24/17 01:42 Iodinated Contrast- Oral and Allergy Dyspnea Verified 11/24/17 01:42 IV Dye [Iodinated Contrast Media - IV Dye] Iodine and Iodide Containing Allergy Anaphylaxis Verified 11/24/17 01:42 Produc Review of Systems ROS Statement: Those systems with pertinent positive or pertinent negative responses have been documented in the HPI. ROS Other: All systems not noted in ROS Statement are negative. Past Medical History Past Medical History: Chest Pain / Angina, Deep Vein Thrombosis (DVT), GERD/ Reflux, Hyperlipidemia, Hypertension, Pulmonary Embolus (PE), Syncope, Thyroid Disorder Additional Past Medical History / Comment(s): HAD THYROID NODULES(NON MALIGNANT) , PARKINSONS, "NERVE PAIN-TAKES GABAPENTIN", CONSTIPATION-, HX of blood clots History of Any Multi-Drug Resistant Organisms: None Reported Past Surgical History: Back Surgery, Cholecystectomy, Hernia Repair, Hysterectomy, Orthopedic Surgery, Tubal Ligation Additional Past Surgical History / Comment(s): EYE LID LIFT, PHIL ARTHOSCOPIC KNEES, L5-S1 LAMINECTOMY, THYROIDECTOMY, SPINAL FUSION 12/2013, EGD, PHIL CATARACTS. Past Anesthesia/Blood Transfusion Reactions: Postoperative Nausea & Vomiting ( PONV) Additional Past Anesthesia/Blood Transfusion Reaction / Comment(s): VERY SLOW TO WAKE UP Past Psychological History: Anxiety, Depression Smoking Status: Never smoker Past Alcohol Use History: None Reported Past Drug Use History: None Reported - Past Family History Mother Family Medical History: Coronary Artery Disease (CAD), CVA/TIA, Hypertension Father Family Medical History: Coronary Artery Disease (CAD), CVA/TIA, Hypertension General Exam Limitations: no limitations General appearance: alert, in no apparent distress Head exam: Present: atraumatic, normocephalic Eye exam: Present: normal appearance, PERRL, EOMI Neck exam: Present: normal inspection, full ROM. Absent: tenderness, meningismus Respiratory exam: Present: normal lung sounds bilaterally. Absent: respiratory distress, wheezes Cardiovascular Exam: Present: regular rate, normal rhythm GI/Abdominal exam: Present: soft. Absent: distended, tenderness, guarding Extremities exam: Present: normal inspection, tenderness (Point tenderness at the AC joint and superior aspect of the humerus.), other (Left upper extremity: Trouble Clerk strength normal, distal pulses intact.). Absent: full ROM (Significant pain with range of motion at the left shoulder.), joint swelling Back exam: Present: normal inspection, full ROM. Absent: tenderness Neurological exam: Present: alert, oriented X3, CN II-XII intact. Absent: motor sensory deficit Psychiatric exam: Present: normal affect, normal mood Skin exam: Present: warm, dry, intact. Absent: cyanosis, diaphoretic Course Vital Signs 11/24/17 11/24/17 11/24/17 01:37 02:12 02:43 Temperature 99.2 F Pulse Rate 74 68 66 Respiratory 18 16 18 Rate Blood Pressure 207/80 195/78 188/77 O2 Sat by Pulse 100 98 Oximetry 11/24/17 11/24/17 04:01 04:02 Temperature Pulse Rate 64 63 Respiratory 18 18 Rate Blood Pressure 169/83 180/79 O2 Sat by Pulse 99 97 Oximetry EKG Findings - EKG Comments: EKG Findings:: EKG: Sinus rhythm with first-degree AV block, ventricular rate is 60, NE interval 216, QRS duration 96, QTC 424, there is minimal voltage criteria for LVH, no ischemic changes. Medical Decision Making - Medical Decision Making 77-year-old female with worsening right shoulder pain status post fall. Patient has significant reduction in range of motion secondary to pain on exam. No external bruising or joint effusion noted. Distal pulses intact. X-rays obtained, no fracture dislocation, there is osteoarthritis with narrowing of joint space mild spurring. Patient given shot of Toradol on reevaluation, she is pain-free as long she does not move her arm. Laboratory studies are obtained as patient's blood pressure is significantly elevated. This is likely secondary to pain. CBC CMP and troponin are negative. EKG is nonischemic. Patient's blood pressure is down trending after 10 of hydralazine. She will be discharged home and should take her normal dose of amlodipine. Please recheck blood pressure at home and follow up with primary care physician. Given the history, there is concern for both osteoarthritis and the possibility of frozen shoulder. She will be given Motrin and should follow up with primary care physician regarding possibility of physical therapy. - Lab Data Result diagrams: 11/24/17 04:58 11/24/17 04:58 Lab Results 11/24/17 11/24/17 11/24/17 Range/Units 04:58 04:58 04:58 WBC 7.0 (3.8-10.6) k/uL RBC 4.57 (3.80-5.40) m/uL Hgb 12.2 (11.4-16.0) gm/dL Hct 37.8 (34.0-46.0) % MCV 82.7 (80.0-100.0) fL MCH 26.7 (25.0-35.0) pg MCHC 32.3 (31.0-37.0) g/dL RDW 14.1 (11.5-15.5) % Plt Count 252 (150-450) k/uL Neutrophils % 78 % Lymphocytes % 11 % Monocytes % 7 % Eosinophils % 1 % Basophils % 0 % Neutrophils # 5.5 (1.3-7.7) k/uL Lymphocytes # 0.8 L (1.0-4.8) k/uL Monocytes # 0.5 (0-1.0) k/uL Eosinophils # 0.1 (0-0.7) k/uL Basophils # 0.0 (0-0.2) k/uL Sodium 141 (137-145) mmol/L Potassium 4.1 (3.5-5.1) mmol/L Chloride 104 (98-107) mmol/L Carbon Dioxide 26 (22-30) mmol/L Anion Gap 11 mmol/L BUN 19 H (7-17) mg/dL Creatinine 0.80 (0.52-1.04) mg/dL Est GFR (CKD-EPI)AfAm 81 (>60 ml/min/1.73 sqM) Est GFR (CKD-EPI)NonAf 71 (>60 ml/min/1.73 sqM) Glucose 97 (74-99) mg/dL Calcium 9.3 (8.4-10.2) mg/dL Total Bilirubin 0.3 (0.2-1.3) mg/dL AST 21 (14-36) U/L ALT 15 (9-52) U/L Alkaline Phosphatase 79 (38-126) U/L Troponin I <0.012 (0.000-0.034) ng/mL Total Protein 6.6 (6.3-8.2) g/dL Albumin 3.7 (3.5-5.0) g/dL Disposition Clinical Impression: Osteoarthritis of left shoulder, Hypertension Disposition: HOME SELF-CARE Condition: Fair Instructions: Osteoarthritis (ED), Fall Prevention for Older Adults (ED), Adhesive Capsulitis (ED), Hypertension (ED) Prescriptions: Ibuprofen [Motrin] 600 mg PO Q8HR PRN #24 tab PRN Reason: Pain Is patient prescribed a controlled substance at d/c from ED?: No Referrals: Juan Olea MD [Primary Care Provider] - 1-2 days Time of Disposition: 06:04
--- NOTE | 2017-11-24 02:18 | XR ---
EXAMINATION TYPE: XR shoulder complete LT DATE OF EXAM: 11/24/2017 COMPARISON: NONE HISTORY: Shoulder pain fell 2 weeks ago TECHNIQUE: 3 views FINDINGS: I see no fracture nor dislocation. There is some narrowing of the shoulder joint space with mild spurring. AC joint is intact. There are no pathologic calcifications at the greater tuberosity. IMPRESSION: Osteoarthritic changes. No fracture seen.
[2017-11-24] MEDS ORDERED: amLODIPine 5 MG TAB PO STA (02:39)
[2017-11-24 02:44] VITALS: RESP 18
[2017-11-24] MEDS ORDERED: SODIUM CHLORIDE 0.9% 500 ML IV ONE (04:48)
[2017-11-24] MEDS ORDERED: hydrALAZINE HCL 20 MG/ML 1 ML VIAL IVP STA (04:58)
[2017-11-24 05:09] LABS: Basophils % (A) 0 %; Eosinophils # (A) 0.1 k/uL (0-0.7); Eosinophils % (A) 1 %; HCT 37.8 % (34.0-46.0); HGB 12.2 gm/dL (11.4-16.0); Lymphocytes # (A) 0.8 k/uL (1.0-4.8); Lymphocytes % (A) 11 %; MCH 26.7 pg (25.0-35.0); MCHC 32.3 g/dL (31.0-37.0); MCV 82.7 fL (80.0-100.0); Mean Platelet Volume 7.5; Monocytes # (A) 0.5 k/uL (0-1.0); Monocytes % (A) 7 %; Neutrophils # (A) 5.5 k/uL (1.3-7.7); Neutrophils % (A) 78 %; Platelet Count 252 k/uL (150-450); RBC 4.57 m/uL (3.80-5.40); RDW 14.1 % (11.5-15.5)
[2017-11-24 05:21] LABS: Albumin 3.7 g/dL (3.5-5.0); Calcium 9.3 mg/dL (8.4-10.2); Potassium 4.1 mmol/L (3.5-5.1); Total Bilirubin 0.3 mg/dL (0.2-1.3); Total Protein 6.6 g/dL (6.3-8.2)
[2017-11-24 06:08] VITALS: BP 181/75; PULSE 70; TEMP 97.4
== END 2017-11-24 06:35 | disposition home or self-care (01) ==
LOC: EC 01:35
DX: M19.012 Primary osteoarthritis, left shoulder (principal); I10 Essential (primary) hypertension; M75.92 Shoulder lesion, unspecified, left shoulder; K21.9 Gastro-esophageal reflux disease without esophagitis; G20 Parkinson's disease; E04.1 Nontoxic single thyroid nodule; F41.9 Anxiety disorder, unspecified; F32.9 Major depressive disorder, single episode, unspecified; Z79.899 Other long term (current) drug therapy; Z88.8 Allergy status to other drugs, medicaments and biological substances; Z88.1 Allergy status to other antibiotic agents; Z88.0 Allergy status to penicillin; Z88.2 Allergy status to sulfonamides; Z91.041 Radiographic dye allergy status; Z91.048 Other nonmedicinal substance allergy status; W19.XXXA Unspecified fall, initial encounter
CPT/HCPCS: 36415; 93005; 80053; 84484; 85025; 73030; 99284; 96374; 96361; 96372; J0360; J1885

== ENCOUNTER → 2017-12-01 | Outpatient (CLI) | payer MEDICARE ==
--- NOTE | 2017-12-02 12:02 | XR ---
Left shoulder HISTORY: Pain, trauma 3 views of the left shoulder correlated to prior exam 11/24/2017 Arthropathy noted at the acromioclavicular joint. Bone mineralization, joint spaces and alignment are maintained. Left lung apex as visualized is normal. There may be a small distal acromial spur. IMPRESSION: No acute fracture or dislocation. Consider shoulder MRI for better evaluation. Correlate for possible impingement.
== END | disposition home or self-care (01) ==
LOC: RADXRMAIN 16:41
PROVIDERS: ATTEND Internal Medicine Geriatric Medicine
DX: M25.512 Pain in left shoulder (principal)

== ENCOUNTER 2018-01-21 14:52 | Emergency (ER) | payer MEDICARE ==
[2018-01-21] MEDS ORDERED: METOCLOPRAMIDE 5 MG/ML 2 ML VIAL IVP STA (15:43)
[2018-01-21] MEDS ORDERED: LORazepam 2 MG/ML INJ IV STA (15:43)
--- NOTE | 2018-01-21 15:50 | ED ---
General Adult HPI - General Source: patient, EMS, RN notes reviewed Mode of arrival: EMS Limitations: no limitations <Jose Morrell - Last Filed: 01/21/18 16:06> <Franky Richardson - Last Filed: 01/21/18 18:48> - General Chief complaint: Dizziness Stated complaint: Dizziness Time Seen by Provider: 01/21/18 15:27 - History of Present Illness Initial comments: Patient is a pleasant 77-year-old female presenting to the emergency department with dizziness. Patient has a history of Parkinson's. Patient states she has been somewhat more off balance recently. Patient did have a fall recently and saw orthopedics. Patient has been more off balance yesterday and today. Patient denies spinning type sensation. No weakness. Patient is unclear if she may have had an episode of confusion earlier. Patient called a friend because she did not trust herself. (Jose Morrell) - Related Data Home Medications Medication Instructions Recorded Confirmed Pantoprazole Sodium [Protonix] 40 mg PO Q48H 12/26/13 01/21/18 Calcium Carbonate/Vitamin D3 1 tab PO DAILY 05/04/15 01/21/18 [Calcium 600-Vit D3 400 Tablet] Carboxymethylcellulose Sodium 1 drop BOTH EYES QID PRN 05/04/15 01/21/18 [Refresh Tears] Levothyroxine Sodium [Synthroid] 88 mcg PO DAILY 05/04/15 01/21/18 Sertraline HCl 75 mg PO DAILY 05/04/15 01/21/18 Vit C/E/Zn/Coppr/Lutein/Zeaxan 1 cap PO BID 05/04/15 01/21/18 [Preservision Areds 2 Softgel] Carbidopa-Levodopa ER 25-100Mg 3 tab PO TID-W/MEALS 08/23/16 01/21/18 [Sinemet CR 25-100 mg] Gabapentin [Neurontin] 300 mg PO TID 08/23/16 01/21/18 Polyethylene Glycol 3350 [Miralax] 17 gm PO HS 08/23/16 01/21/18 Sennosides [Senna Lax] 34.4 mg PO HS 08/23/16 01/21/18 Ergocalciferol [Vitamin D2 50,000 unit PO Q14D 04/17/17 01/21/18 (DRISDOL)] amLODIPine [Norvasc] 5 mg PO DAILY 05/06/17 01/21/18 Previous Rx's Medication Instructions Recorded Apixaban [Eliquis] 5 mg PO BID #70 tab 04/18/17 ALPRAZolam [Xanax] 0.25 mg PO Q8HR PRN 3 Days #9 tab 01/21/18 Meclizine [Antivert] 25 mg PO TID PRN #20 tab 01/21/18 Allergies Allergy/AdvReac Type Severity Reaction Status Date / Time Nitrofuran Analogues Allergy Mild Rash/Hives Verified 01/21/18 16:19 Penicillins Allergy Mild Rash/Hives Verified 01/21/18 16:19 clindamycin Allergy Rash/Hives Verified 01/21/18 16:19 Iodinated Contrast- Oral and Allergy Dyspnea Verified 01/21/18 16:19 IV Dye [Iodinated Contrast Media - IV Dye] Iodine and Iodide Containing Allergy Anaphylaxis Verified 01/21/18 16:19 Produc atorvastatin calcium AdvReac Mild Nausea Verified 01/21/18 16:19 [From Lipitor] Sulfa (Sulfonamide AdvReac Mild Nausea & Verified 01/21/18 16:19 Antibiotics) Vomiting Review of Systems ROS Other: All systems not noted in ROS Statement are negative. Constitutional: Denies: fever Eyes: Denies: eye pain ENT: Denies: ear pain Respiratory: Denies: dyspnea Cardiovascular: Reports: chest pain (Patient did have some mild chest discomfort this morning) Endocrine: Denies: fatigue Gastrointestinal: Denies: vomiting Genitourinary: Denies: dysuria Musculoskeletal: Denies: back pain Skin: Denies: rash Neurological: Reports: as per HPI, headache (Patient has a mild frontal headache ), abnormal gait. Denies: weakness, numbness, paresthesias <Jose Morrell - Last Filed: 01/21/18 16:06> ROS Other: All systems not noted in ROS Statement are negative. <Franky Richardson - Last Filed: 01/21/18 18:48> ROS Statement: Those systems with pertinent positive or pertinent negative responses have been documented in the HPI. Past Medical History Past Medical History: Chest Pain / Angina, Deep Vein Thrombosis (DVT), GERD/ Reflux, Hyperlipidemia, Hypertension, Pulmonary Embolus (PE), Syncope, Thyroid Disorder Additional Past Medical History / Comment(s): HAD THYROID NODULES(NON MALIGNANT) , PARKINSONS, "NERVE PAIN-TAKES GABAPENTIN", CONSTIPATION-, HX of blood clots History of Any Multi-Drug Resistant Organisms: None Reported Past Surgical History: Back Surgery, Cholecystectomy, Hernia Repair, Hysterectomy, Orthopedic Surgery, Tubal Ligation Additional Past Surgical History / Comment(s): EYE LID LIFT, PHIL ARTHOSCOPIC KNEES, L5-S1 LAMINECTOMY, THYROIDECTOMY, SPINAL FUSION 12/2013, EGD, PHIL CATARACTS. Past Anesthesia/Blood Transfusion Reactions: Postoperative Nausea & Vomiting ( PONV) Additional Past Anesthesia/Blood Transfusion Reaction / Comment(s): VERY SLOW TO WAKE UP Past Psychological History: Anxiety, Depression Smoking Status: Never smoker Past Alcohol Use History: None Reported Past Drug Use History: None Reported - Past Family History Mother Family Medical History: Coronary Artery Disease (CAD), CVA/TIA, Hypertension Father Family Medical History: Coronary Artery Disease (CAD), CVA/TIA, Hypertension <Jose Morrell - Last Filed: 01/21/18 16:06> General Exam Limitations: no limitations General appearance: alert, in no apparent distress Head exam: Present: atraumatic, normocephalic Eye exam: Present: normal appearance, PERRL, EOMI. Absent: nystagmus ENT exam: Present: normal oropharynx Neck exam: Present: normal inspection Respiratory exam: Present: normal lung sounds bilaterally. Absent: chest wall tenderness Cardiovascular Exam: Present: regular rate, normal rhythm Expanded Peripheral pulses: 2+: Radial (R), Radial (L), Dorsalis Pedis (R), Dorsalis Pedis (L) GI/Abdominal exam: Present: soft. Absent: tenderness Extremities exam: Present: normal inspection. Absent: pedal edema, calf tenderness Neurological exam: Present: alert, CN II-XII intact. Absent: motor sensory deficit Expanded Neurological exam: Present: protecting the airway Speech: Present: fluid speech Cranial nerves: EOM's Intact: Normal, Facial Sensation: Normal Cerebellar function: Finger to Nose: Abnormal Right, Abnormal Left Sensory exam: Upper Extremity Light Touch: Normal, Lower Extremity Light Touch: Normal Motor strength exam: RUE: 5, LUE: 5, RLE: 5, LLE: 5 Eye Response: (4) open spontaneously Motor Response: (6) obeys commands Verbal Response: (5) oriented Psychiatric exam: Present: normal affect, normal mood Skin exam: Present: normal color <Jose Morrell - Last Filed: 01/21/18 16:06> Course <Jose Morrell - Last Filed: 01/21/18 16:06> <Franky Richardson - Last Filed: 01/21/18 18:48> Vital Signs 01/21/18 01/21/18 01/21/18 14:55 16:08 16:21 Temperature 98.0 F Pulse Rate 65 66 64 Respiratory 16 18 18 Rate Blood Pressure 211/71 203/62 218/59 O2 Sat by Pulse 99 97 97 Oximetry 01/21/18 01/21/18 01/21/18 17:06 17:38 18:28 Temperature Pulse Rate 69 62 64 Respiratory 18 18 Rate Blood Pressure 187/59 183/61 174/59 O2 Sat by Pulse 97 97 Oximetry - Reevaluation(s) Reevaluation #1: 01/21/18 16:04 Case was discussed with Dr. Olea. He does recommend further evaluating patient and feels have testing comes back normal there is a good chance patient can be discharged and follow-up. He states patient does have chronic vertigo and some anxiety. He states patient is currently taking anticoagulation. Patient does confirm this. He agrees patient would not need repeat computed tomography scan with taking her anticoagulation and no dyspnea with normal pulse ox. (Jose Morrell) EKG Findings - EKG Comments: EKG Findings:: Normal sinus rhythm 66. First-degree AV block with AR of 204. QRS 82. QT 406. QTc 425. Normal axis. Normal QRS. No acute ST change. <Jose Morrell - Last Filed: 01/21/18 16:06> Medical Decision Making <Jose Morrell - Last Filed: 01/21/18 16:06> - Lab Data Result diagrams: 01/21/18 15:36 01/21/18 15:36 <Franky Richardson - Last Filed: 01/21/18 18:48> - Medical Decision Making The patient's care was passed off to me from prior shift. She apparently came in today as she's been very dizzy and also having some gait instability. The computed tomography scan of the brain does show some cerebral atrophy but no acute process and no changes compared to computed tomography scan from 2014. Her chest x-ray did not show any acute abnormalities. Her laboratory and urinalysis workup was negative. She did receive some medications for her symptoms which include Ativan, Antivert, and Reglan. She is feeling much improved on recheck. She is able to ambulate without any difficulty on recheck. The case was discussed with Dr. Olea by previous shift and he would like her to be discharged home with close follow-up. The case also was discussed with her son Juan Silva who also is a physician/oncologist. He does also relate that she has a significant amount of anxiety. He agrees that it would be reasonable to place her on a low-dose benzodiazepine. He relates that she will be moving to his location in [place] and about 2-1/2 weeks and being assisted living at that time. He is agreeable with the discharge as well. Patient was counseled regarding her symptoms in detail and leaves in no significant distress. (Franky Richardson) - Lab Data Lab Results 01/21/18 01/21/18 01/21/18 Range/Units 15:36 15:36 15:36 WBC 5.9 (3.8-10.6) k/uL RBC 4.84 (3.80-5.40) m/uL Hgb 13.5 (11.4-16.0) gm/dL Hct 39.8 (34.0-46.0) % MCV 82.1 (80.0-100.0) fL MCH 27.8 (25.0-35.0) pg MCHC 33.8 (31.0-37.0) g/dL RDW 14.1 (11.5-15.5) % Plt Count 217 (150-450) k/uL Neutrophils % 76 % Lymphocytes % 13 % Monocytes % 9 % Eosinophils % 1 % Basophils % 0 % Neutrophils # 4.5 (1.3-7.7) k/uL Lymphocytes # 0.8 L (1.0-4.8) k/uL Monocytes # 0.5 (0-1.0) k/uL Eosinophils # 0.1 (0-0.7) k/uL Basophils # 0.0 (0-0.2) k/uL PT (9.0-12.0) sec INR (<1.2) APTT (22.0-30.0) sec Sodium 138 (137-145) mmol/L Potassium 4.2 (3.5-5.1) mmol/L Chloride 101 (98-107) mmol/L Carbon Dioxide 28 (22-30) mmol/L Anion Gap 9 mmol/L BUN 15 (7-17) mg/dL Creatinine 0.60 (0.52-1.04) mg/dL Est GFR (CKD-EPI)AfAm >90 (>60 ml/min/1.73 sqM) Est GFR (CKD-EPI)NonAf 87 (>60 ml/min/1.73 sqM) Glucose 93 (74-99) mg/dL Plasma Lactic Acid Nikos (0.7-2.0) mmol/L Calcium 9.0 (8.4-10.2) mg/dL Magnesium 2.3 (1.6-2.3) mg/dL Total Bilirubin 0.4 (0.2-1.3) mg/dL AST 19 (14-36) U/L ALT 23 (9-52) U/L Alkaline Phosphatase 83 (38-126) U/L Total Creatine Kinase 55 (30-135) U/L CK-MB (CK-2) 1.9 (0.0-2.4) ng/mL CK-MB (CK-2) Rel Index 3.5 Troponin I <0.012 (0.000-0.034) ng/mL Total Protein 6.8 (6.3-8.2) g/dL Albumin 4.0 (3.5-5.0) g/dL Urine Color Urine Appearance (Clear) Urine pH (5.0-8.0) Ur Specific Corona (1.001-1.035) Urine Protein (Negative) Urine Glucose (UA) (Negative) Urine Ketones (Negative) Urine Blood (Negative) Urine Nitrite (Negative) Urine Bilirubin (Negative) Urine Urobilinogen (<2.0) mg/dL Ur Leukocyte Esterase (Negative) 01/21/18 01/21/18 01/21/18 Range/Units 15:36 16:15 16:15 WBC (3.8-10.6) k/uL RBC (3.80-5.40) m/uL Hgb (11.4-16.0) gm/dL Hct (34.0-46.0) % MCV (80.0-100.0) fL MCH (25.0-35.0) pg MCHC (31.0-37.0) g/dL RDW (11.5-15.5) % Plt Count (150-450) k/uL Neutrophils % % Lymphocytes % % Monocytes % % Eosinophils % % Basophils % % Neutrophils # (1.3-7.7) k/uL Lymphocytes # (1.0-4.8) k/uL Monocytes # (0-1.0) k/uL Eosinophils # (0-0.7) k/uL Basophils # (0-0.2) k/uL PT 10.3 (9.0-12.0) sec INR 1.1 (<1.2) APTT 25.7 (22.0-30.0) sec Sodium (137-145) mmol/L Potassium (3.5-5.1) mmol/L Chloride (98-107) mmol/L Carbon Dioxide (22-30) mmol/L Anion Gap mmol/L BUN (7-17) mg/dL Creatinine (0.52-1.04) mg/dL Est GFR (CKD-EPI)AfAm (>60 ml/min/1.73 sqM) Est GFR (CKD-EPI)NonAf (>60 ml/min/1.73 sqM) Glucose (74-99) mg/dL Plasma Lactic Acid Nikos 0.6 L (0.7-2.0) mmol/L Calcium (8.4-10.2) mg/dL Magnesium (1.6-2.3) mg/dL Total Bilirubin (0.2-1.3) mg/dL AST (14-36) U/L ALT (9-52) U/L Alkaline Phosphatase (38-126) U/L Total Creatine Kinase (30-135) U/L CK-MB (CK-2) (0.0-2.4) ng/mL CK-MB (CK-2) Rel Index Troponin I (0.000-0.034) ng/mL Total Protein (6.3-8.2) g/dL Albumin (3.5-5.0) g/dL Urine Color Light Yellow Urine Appearance Clear (Clear) Urine pH 7.0 (5.0-8.0) Ur Specific Corona 1.005 (1.001-1.035) Urine Protein Negative (Negative) Urine Glucose (UA) Negative (Negative) Urine Ketones Negative (Negative) Urine Blood Negative (Negative) Urine Nitrite Negative (Negative) Urine Bilirubin Negative (Negative) Urine Urobilinogen <2.0 (<2.0) mg/dL Ur Leukocyte Esterase Negative (Negative) Disposition <Jose Morrell - Last Filed: 01/21/18 16:06> Is patient prescribed a controlled substance at d/c from ED?: Yes When asked, does pt state using other controlled substances?: No If prescribed controlled substance>3 days was MAPS reviewed?: Prescribed <3 Days Time of Disposition: 18:48 <Franky Richardson - Last Filed: 01/21/18 18:48> Clinical Impression: Hypertension, Dizziness, Anxiety, Parkinsons disease Disposition: HOME SELF-CARE Condition: Good Instructions: Dizziness (ED), Anxiety (ED), Hypertension (ED), Low Sodium Diet (ED) Prescriptions: ALPRAZolam [Xanax] 0.25 mg PO Q8HR PRN 3 Days #9 tab PRN Reason: Anxiety Meclizine [Antivert] 25 mg PO TID PRN #20 tab PRN Reason: Vertigo Referrals: Juan Olea MD [Primary Care Provider] - 1-2 days
[2018-01-21 15:57] LABS: Basophils % (A) 0 %; Eosinophils # (A) 0.1 k/uL (0-0.7); Eosinophils % (A) 1 %; HCT 39.8 % (34.0-46.0); HGB 13.5 gm/dL (11.4-16.0); Lymphocytes # (A) 0.8 k/uL (1.0-4.8); Lymphocytes % (A) 13 %; MCH 27.8 pg (25.0-35.0); MCHC 33.8 g/dL (31.0-37.0); MCV 82.1 fL (80.0-100.0); Mean Platelet Volume 7.3; Monocytes # (A) 0.5 k/uL (0-1.0); Monocytes % (A) 9 %; Neutrophils # (A) 4.5 k/uL (1.3-7.7); Neutrophils % (A) 76 %; Platelet Count 217 k/uL (150-450); RBC 4.84 m/uL (3.80-5.40); RDW 14.1 % (11.5-15.5); WBC 5.9 k/uL (3.8-10.6)
[2018-01-21] MEDS ORDERED: MECLIZINE 12.5 MG TAB PO STA (16:03)
[2018-01-21 16:07] LABS: ALT 23 U/L (9-52); AST 19 U/L (14-36); Alkaline Phosphatase 83 U/L (38-126); Anion Gap 9 mmol/L; Blood Urea Nitrogen 15 mg/dL (7-17); Carbon Dioxide 28 mmol/L (22-30); Chloride 101 mmol/L (98-107); Glucose 93 mg/dL (74-99); Magnesium 2.3 mg/dL (1.6-2.3); Potassium 4.2 mmol/L (3.5-5.1); Sodium 138 mmol/L (137-145); Total Bilirubin 0.4 mg/dL (0.2-1.3); Total Protein 6.8 g/dL (6.3-8.2)
[2018-01-21 16:10] LABS: Creatine Kinase 55 U/L (30-135)
[2018-01-21 16:23] LABS: Creatine Kinase MB 1.9 ng/mL (0.0-2.4); Troponin I <0.012 ng/mL (0.000-0.034)
[2018-01-21] MEDS ORDERED: amLODIPine 5 MG TAB PO STA (16:25)
[2018-01-21 16:26] LABS: INR 1.1 (<1.2); Partial Thromboplastin Time 25.7 sec (22.0-30.0); Prothrombin Time 10.3 sec (9.0-12.0)
[2018-01-21 16:27] LABS: Appearance,Urine Clear (Clear); Bilirubin,Urine Negative (Negative); Blood,Urine Negative (Negative); Color,Urine Light Yellow; Glucose,Urine (UA) Negative (Negative); Ketones,Urine Negative (Negative); Leukocyte Esterase,Urine Negative (Negative); Nitrite,Urine Negative (Negative); Protein,Urine Negative (Negative); Specific Gravity,Urine 1.005 (1.001-1.035); Urobilinogen,Urine <2.0 mg/dL (<2.0)
--- NOTE | 2018-01-21 16:52 | CT ---
EXAMINATION TYPE: CT brain wo con DATE OF EXAM: 01/21/2018 COMPARISON: 12/29/2013 HISTORY: Dizziness CT DLP: 956.7 mGycm Automated exposure control for dose reduction was used. FINDINGS: There is cerebral cortical atrophy. There is no mass effect nor midline shift. There is no sign of in tracranial hemorrhage. The calvarium is intact. IMPRESSION: CEREBRAL ATROPHY. NO ACUTE INTRACRANIAL ABNORMALITY. NO CHANGE.
--- NOTE | 2018-01-21 16:54 | XR ---
EXAMINATION TYPE: XR chest 2V DATE OF EXAM: 01/21/2018 COMPARISON: 05/07/2017 HISTORY: Chest pressure TECHNIQUE: Frontal and lateral views of the chest are obtained. FINDINGS: Heart and mediastinum are normal. Lungs are clear. Diaphragm is normal. There are chest le ads. Bony thorax appears normal. IMPRESSION: Normal chest. No change.
[2018-01-21 19:28] VITALS: BP 181/72; PULSE 66; RESP 16; TEMP 99.2
== END 2018-01-21 19:36 | disposition home or self-care (01) ==
LOC: EC 14:52
DX: R42 Dizziness and giddiness (principal); F41.9 Anxiety disorder, unspecified; I10 Essential (primary) hypertension; G20 Parkinson's disease; K21.9 Gastro-esophageal reflux disease without esophagitis; E78.5 Hyperlipidemia, unspecified; E07.9 Disorder of thyroid, unspecified; K59.00 Constipation, unspecified; F32.9 Major depressive disorder, single episode, unspecified; Z86.711 Personal history of pulmonary embolism; Z86.718 Personal history of other venous thrombosis and embolism; Z88.0 Allergy status to penicillin; Z88.1 Allergy status to other antibiotic agents; Z88.2 Allergy status to sulfonamides; Z88.8 Allergy status to other drugs, medicaments and biological substances; Z91.041 Radiographic dye allergy status; Z91.048 Other nonmedicinal substance allergy status; Z79.899 Other long term (current) drug therapy
CPT/HCPCS: 99285; 96374; 96375; 36415; 93005; 80053; 82550; 82553; 83605; 83735; 84484; 85025; 85610; 85730; 81003; 71046; 70450; J2060; J2765

== ENCOUNTER → 2018-03-31 | Outpatient (CLI) | payer MEDICARE ==
--- NOTE | 2018-03-31 20:23 | EEG ---
ELECTROENCEPHALOGRAM REPORT DATE OF SERVICE: 03/31/2018 REASON FOR TESTING: Recurrent falls and possible syncope. DESCRIPTION OF THE PROCEDURE: This EEG was performed using a 21-channel digital electroencephalograph, following international 10-20 system. DESCRIPTION OF THE RECORDING: From the beginning of the tracing, and with the patient's eyes closed, the background rhythm was mostly consisting of 9 Hz alpha frequency in the posterior occipital lead. No obvious asymmetry is seen. Photic stimulation was performed with a minimal driving response seen. No pathological waves were elicited. Hyperventilation was not performed. The patient remains awake throughout the tracing. Occasional movement artifacts are seen. No epileptiform discharges were seen. Her EKG lead showed a regular rate and rhythm. INTERPRETATION: This awake EEG can be considered within normal limits. There was no asymmetry seen. No epileptiform discharges were noted. The absence of epileptiform discharges does not rule out the diagnosis of epilepsy; therefore clinical correlation is recommended. Thank you, Dr. Olea, for allowing me to participate in the care of your patient. If you have any questions, please feel free to contact me. KASSIE / IJN: [id number] /
== END | disposition home or self-care (01) ==
LOC: NEUROMAIN 14:43
PROVIDERS: ATTEND Internal Medicine Geriatric Medicine
DX: R56.9 Unspecified convulsions (principal)
CPT/HCPCS: 95816